=== PATIENT | male | born 1980 | race Caucasian/White ===

== ENCOUNTER 2022-03-17 04:53 | Inpatient (IN) ==
[2022-03-17] MEDS ORDERED: RAPID SEQUENCE INDUCTION BAG ONE (04:56)
[2022-03-17] MEDS ORDERED: PROPOFOL IV EMULSION 10 MG/ML 100 ML VIAL IV ONE (05:01)
[2022-03-17] MEDS ORDERED: SODIUM CHLORIDE 0.9% 500 ML IV SCH (05:15)
--- NOTE | 2022-03-17 05:20 | Emergency Department Note ---
History of Present Illness General Chief complaint: Cardiac Arrest/CPR Time Seen by Provider: 03/17/22 05:04 History of Present Illness 41-year-old male presents via EMS reportedly was found hanging by the guards at the [facility]. Patient reportedly was found to have a shoelace tied around his neck and he was reportedly hanging from a bunk bed. Patient really did not have a pulse and CPR was started x2 minutes patient had return of spontaneous circulation and was reportedly breathing. EMS arrived and the patient had an OPA inserted and the patient had his breathing assisted by [id number]. Patient is unresponsive upon arrival does not provide any history. There is no further history available to me currently as to the patient's condition and the events that actually occurred Past Med/Surg History Social History Smoking Status: Unknown if ever smoked Feels Safe at Home: Yes Immunizations: Past medical and past surgical history is unobtainable due to patient's clinical condition, social history is unknown, however the patient is an inmate at the [facility] present Review of Systems Unobtainable due to reduced consciousness Physical Exam Vital Signs Vital Signs - 24 hr 03/17/22 05:02 03/17/22 05:07 03/17/22 05:13 Temperature Temperature Source Pulse Rate 82 Pulse Rate from SpO2 Sensor Respiratory Rate 18 Respiratory Effort / Characteristics Mechanically Ventilated Respiratory Depth Normal Blood Pressure 150/93 H Blood Pressure Mean 112 Pulse Oximetry 99 100 99 Oxygen Delivery Method Mechanical Vent Mechanical Vent Oxygen Flow Rate Fraction of Inspired Oxygen 80 80 SaO2/FiO2 Ratio 123 125 Sepsis Recent Fever Within 48 Hours No Sepsis New/Unexplained Change in Mental Status No Sepsis Action Taken by Nursing No Action Required Fraction of Inspired Oxygen - Titration Pulse Oximetry Post Tiitration 03/17/22 05:16 03/17/22 05:03 03/17/22 05:39 Temperature Temperature Source Pulse Rate 115 H Pulse Rate from SpO2 Sensor Respiratory Rate 24 Respiratory Effort / Characteristics Respiratory Depth Blood Pressure Blood Pressure Mean Pulse Oximetry 98 97 Oxygen Delivery Method Ambu-Bag Oxygen Flow Rate 15 Fraction of Inspired Oxygen 80 40 SaO2/FiO2 Ratio Sepsis Recent Fever Within 48 Hours Sepsis New/Unexplained Change in Mental Status Sepsis Action Taken by Nursing Fraction of Inspired Oxygen - Titration 80 Pulse Oximetry Post Tiitration 99 03/17/22 06:00 03/17/22 06:09 03/17/22 05:00 Temperature 36.1 C L Temperature Source Rectal Pulse Rate 118 H Pulse Rate from SpO2 Sensor 118 H Respiratory Rate 22 17 Respiratory Effort / Characteristics Respiratory Depth Blood Pressure 150/93 H Blood Pressure Mean 112 Pulse Oximetry 100 Oxygen Delivery Method Oxygen Flow Rate Fraction of Inspired Oxygen SaO2/FiO2 Ratio Sepsis Recent Fever Within 48 Hours Sepsis New/Unexplained Change in Mental Status Sepsis Action Taken by Nursing Fraction of Inspired Oxygen - Titration Pulse Oximetry Post Tiitration 03/17/22 05:06 03/17/22 05:12 03/17/22 05:38 Temperature Temperature Source Pulse Rate 93 H 105 H 92 H Pulse Rate from SpO2 Sensor 109 H 106 H 93 H Respiratory Rate 25 H 21 27 H Respiratory Effort / Characteristics Respiratory Depth Blood Pressure 148/89 H 136/88 145/99 H Blood Pressure Mean 108 104 114 Pulse Oximetry 99 99 100 Oxygen Delivery Method Oxygen Flow Rate Fraction of Inspired Oxygen SaO2/FiO2 Ratio Sepsis Recent Fever Within 48 Hours Sepsis New/Unexplained Change in Mental Status Sepsis Action Taken by Nursing Fraction of Inspired Oxygen - Titration Pulse Oximetry Post Tiitration 03/17/22 05:45 03/17/22 06:00 Temperature Temperature Source Pulse Rate 104 H 95 H Pulse Rate from SpO2 Sensor 99 H 94 H Respiratory Rate 22 25 H Respiratory Effort / Characteristics Respiratory Depth Blood Pressure 151/91 H 159/84 H Blood Pressure Mean 111 109 Pulse Oximetry 100 100 Oxygen Delivery Method Oxygen Flow Rate Fraction of Inspired Oxygen SaO2/FiO2 Ratio Sepsis Recent Fever Within 48 Hours Sepsis New/Unexplained Change in Mental Status Sepsis Action Taken by Nursing Fraction of Inspired Oxygen - Titration Pulse Oximetry Post Tiitration VITAL SIGNS - Vital signs and nursing notes were reviewed. GENERAL -responsive cerebrate posturing SKIN -abrasion anterior mid-neck HEAD - NC/AT. EYES -pupils are equal and reactive at 5 bilaterally EARS - No deformities of external structures noted on gross examination bilaterally. NOSE - Midline and without cyanosis. No epistaxis or purulent drainage noted. Septum midline without deviation or septal hematoma noted. MOUTH/OROPHARYNX -there is an OPA airway present patient is currently undergoing [id number] ventilation NECK -cervical collar is present upon arrival the patient has a large abrasion to the anterior neck the trachea is midline there is no significant crepitance in the anterior neck LUNGS - Chest wall symmetric without accessory muscle use, intercostals retractions, or central cyanosis. Normal vesicular breath sounds CTA B/L. No wheezes, rales, or rhonchi appreciated. CARDIAC -tachycardic with S1/S2. No murmur, rubs, or gallops appreciated. ABDOMEN - Abdominal contour soft without pulsations or visible masses. EXTREMITIES - No clubbing or peripheral cyanosis. NEUROLOGIC -patient is unresponsive, with decerebrate posturing upon arrival his GCS is 4 PSYCH -unresponsive, GCS of 4 Procedures Intubation Time out performed: Yes sedative: Etomidate Mg Given: 20 paralytic: Succinylcholine Mg Given: 120 Laryngoscope: other (glidescope) ET Tube Size: 7.5 ET Tube Uncuffed: Yes Tube Secured Depth (cm): 22 Tube Secured Location: teeth Tube Placement Confirmation: visualized tube passing through cords, equal breath sounds bilaterally, no breath sounds over epigastrium and confirmation by capnometry Patient Tolerated Procedure: well Intubation Complications: none Course Reevaluation(s) Reevaluation #1: Patient remains intubated, is on dipper Van IV, patient has a cervical collar in place. Vital signs are currently stable on repeat examination. Time: 05:54 Consultations Consultation #1: Had spoken with the nurse practitioner Hermelindo from the ICU at the time of this patient's arrival Consultation #2: Case was discussed with the [facility] hospitalist for admission to the ICU Time: 06:28 Administered Medications Propofol (Diprivan) 1,000 mg in 100 mls @ 9.6 mls/hr IV [id number]; Protocol Stop: 03/20/22 06:14 Last Admin: 03/17/22 06:16 Dose: 80 mcg/kg/min, 38.4 mls/hr Documented By: NAN Co-signed By: CHRISTOPHER Discontinued Medications Ioversol (Optiray 300 500ml) 100 ml IV ONCE ONE Stop: 03/17/22 05:35 Last Admin: 03/17/22 05:35 Dose: 94 ml Documented By: DIONTE Miscellaneous (Rapid Sequence Induction Bag) Confirm Administered Dose 1 each .Clifton GALDAMEZE .STK-MED ONE Stop: 03/17/22 04:57 Last Admin: 03/17/22 05:25 Dose: 1 each Documented By: HERBERT Propofol (Propofol Iv Emulsion 10 Mg/Ml 100 Ml Vial) Confirm Administered Dose 1,000 mg IV .STK-MED ONE Stop: 03/17/22 05:02 Last Admin: 03/17/22 06:18 Dose: Not Given Documented By: NAN Critical Care Time Critical Care Time: Yes Total Critical Care Time: 45 I have personally spent greater than 45 minutes of critical care time in the direct management of this patient. This includes bedside care, interpretation of diagnostic studies, and testing, discussion with consultants, patient, and family members, and other required patient management activities. These minutes are in excess of all separately billable procedures. Medical Decision Making Medical Records Attestation: I reviewed the patient's medical records. Laboratory Data Attestation: I reviewed the patient's lab results. Result diagrams: 03/17/22 05:03 03/17/22 05:03 Lab Results 03/17/22 03/17/22 03/17/22 Range/Units 05:03 05:03 05:03 WBC 16.73 H (4.8-10.8) K/ul RBC 5.28 (4.63-6.08) M/uL Hgb 15.2 (14.0-18.0) g/dl POC Hgb (14.0-18.0) g/dl Hct 46.0 (40.1-51.0) % POC Hct (42-52) % MCV 87.1 (80.0-100.0) fL MCH 28.8 (25.0-34.0) pg MCHC 33.0 (32.0-36.0) g/dL RDW Std Deviation 39.8 (36.4-46.3) fL RDW Coeff of Marry 12.5 (11.5-14.5) % Plt Count 413 H (130-400) K/uL MPV 9.0 L (9.4-12.4) fL Immature Gran % (Auto) 2.0 % Neut % (Auto) 69.4 % Lymph % (Auto) 21.3 % Rice % (Auto) 6.2 % Eos % (Auto) 0.7 % Baso % (Auto) 0.4 % Neut # (Auto) 11.59 H (1.4-6.5) K/uL Lymph # (Auto) 3.57 H (1.2-3.4) K/uL Rice # (Auto) 1.04 H (0.24-0.82) K/uL Eos # (Auto) 0.12 (0-0.50) K/uL Baso # (Auto) 0.07 (0-0.2) K/uL Immature Gran # (Auto) 0.34 H (0.00-0.02) K/uL PT (9.0-12.0) Seconds INR (0.9-1.1) POC pH (7.35-7.45) POC pCO2 (35-46) mmHg POC pO2 (80-95) mmHg POC HCO3 (19-24) ti/L POC Total CO2 (24-31) mmol/L POC Base Excess (-9-1.8) ti/L POC ABG O2 Sat (90-95) % POC Sodium (135-144) mmol/L Sodium 137 (136-145) mmol/L POC Potassium (3.3-5.0) mmol/L Potassium 4.3 (3.5-5.1) mmol/L Chloride 103 (98-107) mmol/L Carbon Dioxide 17 L (21-32) mmol/L Anion Gap 17 H (3-11) BUN 16 (6-23) mg/dl Creatinine 1.03 (0.6-1.4) mg/dl Est Cr Clr Drug Dosing 104.6 ml/min Est GFR ( Amer) 104.8 ml/min Est GFR (Non-Af Amer) 90.4 ml/min BUN/Creatinine Ratio 15.5 (10-20) Glucose 274 H (70-99(Fasting)) mg/dl Calcium 9.0 (8.5-10.1) mg/dl Total Bilirubin 1.8 H (0.2-1.0) mg/dl AST 50 H (13-39) U/L ALT 44 (7-52) U/L Alkaline Phosphatase 59 (34-104) U/L Troponin I High Sens 8.2 (0-20) pg/ml Total Protein 7.5 (6.0-8.3) gm/dl Albumin 4.6 (3.4-5.0) gm/dl Globulin 2.9 (2.5-4.0) gm/dl Albumin/Globulin Ratio 1.6 (0.9-2) Urine Color Urine Appearance (Clear) Urine pH (4.5-7.5) Ur Specific Gilbert (1.000-1.030) Urine Protein (Negative) Urine Glucose (UA) (Negative) Urine Ketones (Negative) Urine Blood (Negative) Urine Nitrite (Negative) Urine Bilirubin (Negative) Urine Urobilinogen (Negative) Ur Leukocyte Esterase (Negative) Urine WBC (Auto) (0-5) /hpf Urine RBC (Auto) (0-4) /hpf U Hyaline Cast (Auto) (0-5) /lpf U Epithel Cells (Auto) (0-5) /lpf Urine Bacteria (Auto) (Negative) Urine Opiates Screen (Neg) Ur Methadone, Qual (Neg) Urine Barbiturates (Neg) Ur Phencyclidine (PCP) (Neg) U Amphetamin/Meth Scrn (Neg) MDMA (Ecstasy) Screen (Neg) U Benzodiazepines Scrn (Neg) Ur Cocaine Metabolite (Neg) U Marijuana (THC) Screen (Neg) Ethyl Alcohol mg/dL < 10.0 (<10.0) mg/dl 03/17/22 03/17/22 03/17/22 Range/Units 05:32 05:50 05:50 WBC (4.8-10.8) K/ul RBC (4.63-6.08) M/uL Hgb (14.0-18.0) g/dl POC Hgb (14.0-18.0) g/dl Hct (40.1-51.0) % POC Hct (42-52) % MCV (80.0-100.0) fL MCH (25.0-34.0) pg MCHC (32.0-36.0) g/dL RDW Std Deviation (36.4-46.3) fL RDW Coeff of Marry (11.5-14.5) % Plt Count (130-400) K/uL MPV (9.4-12.4) fL Immature Gran % (Auto) % Neut % (Auto) % Lymph % (Auto) % Rice % (Auto) % Eos % (Auto) % Baso % (Auto) % Neut # (Auto) (1.4-6.5) K/uL Lymph # (Auto) (1.2-3.4) K/uL Rice # (Auto) (0.24-0.82) K/uL Eos # (Auto) (0-0.50) K/uL Baso # (Auto) (0-0.2) K/uL Immature Gran # (Auto) (0.00-0.02) K/uL PT 12.5 H (9.0-12.0) Seconds INR 1.2 H (0.9-1.1) POC pH (7.35-7.45) POC pCO2 (35-46) mmHg POC pO2 (80-95) mmHg POC HCO3 (19-24) ti/L POC Total CO2 (24-31) mmol/L POC Base Excess (-9-1.8) ti/L POC ABG O2 Sat (90-95) % POC Sodium (135-144) mmol/L Sodium (136-145) mmol/L POC Potassium (3.3-5.0) mmol/L Potassium (3.5-5.1) mmol/L Chloride (98-107) mmol/L Carbon Dioxide (21-32) mmol/L Anion Gap (3-11) BUN (6-23) mg/dl Creatinine (0.6-1.4) mg/dl Est Cr Clr Drug Dosing ml/min Est GFR ( Amer) ml/min Est GFR (Non-Af Amer) ml/min BUN/Creatinine Ratio (10-20) Glucose (70-99(Fasting)) mg/dl Calcium (8.5-10.1) mg/dl Total Bilirubin (0.2-1.0) mg/dl AST (13-39) U/L ALT (7-52) U/L Alkaline Phosphatase (34-104) U/L Troponin I High Sens (0-20) pg/ml Total Protein (6.0-8.3) gm/dl Albumin (3.4-5.0) gm/dl Globulin (2.5-4.0) gm/dl Albumin/Globulin Ratio (0.9-2) Urine Color Yellow Urine Appearance Clear (Clear) Urine pH 5.0 (4.5-7.5) Ur Specific Gilbert 1.025 (1.000-1.030) Urine Protein 2+ H (Negative) Urine Glucose (UA) 3+ H (Negative) Urine Ketones 1+ H (Negative) Urine Blood Trace H (Negative) Urine Nitrite Negative (Negative) Urine Bilirubin Negative (Negative) Urine Urobilinogen Negative (Negative) Ur Leukocyte Esterase Negative (Negative) Urine WBC (Auto) 1-5 (0-5) /hpf Urine RBC (Auto) 0-4 (0-4) /hpf U Hyaline Cast (Auto) 1-5 (0-5) /lpf U Epithel Cells (Auto) 10-20 H (0-5) /lpf Urine Bacteria (Auto) Negative (Negative) Urine Opiates Screen Neg (Neg) Ur Methadone, Qual Neg (Neg) Urine Barbiturates Neg (Neg) Ur Phencyclidine (PCP) Neg (Neg) U Amphetamin/Meth Scrn Neg (Neg) MDMA (Ecstasy) Screen Neg (Neg) U Benzodiazepines Scrn Neg (Neg) Ur Cocaine Metabolite Neg (Neg) U Marijuana (THC) Screen Neg (Neg) Ethyl Alcohol mg/dL (<10.0) mg/dl 03/17/22 Range/Units 05:54 WBC (4.8-10.8) K/ul RBC (4.63-6.08) M/uL Hgb (14.0-18.0) g/dl POC Hgb 14.6 (14.0-18.0) g/dl Hct (40.1-51.0) % POC Hct 43 (42-52) % MCV (80.0-100.0) fL MCH (25.0-34.0) pg MCHC (32.0-36.0) g/dL RDW Std Deviation (36.4-46.3) fL RDW Coeff of Marry (11.5-14.5) % Plt Count (130-400) K/uL MPV (9.4-12.4) fL Immature Gran % (Auto) % Neut % (Auto) % Lymph % (Auto) % Rice % (Auto) % Eos % (Auto) % Baso % (Auto) % Neut # (Auto) (1.4-6.5) K/uL Lymph # (Auto) (1.2-3.4) K/uL Rice # (Auto) (0.24-0.82) K/uL Eos # (Auto) (0-0.50) K/uL Baso # (Auto) (0-0.2) K/uL Immature Gran # (Auto) (0.00-0.02) K/uL PT (9.0-12.0) Seconds INR (0.9-1.1) POC pH 7.24 L (7.35-7.45) POC pCO2 56 H (35-46) mmHg POC pO2 156 H (80-95) mmHg POC HCO3 24 (19-24) ti/L POC Total CO2 25 (24-31) mmol/L POC Base Excess -4.0 (-9-1.8) ti/L POC ABG O2 Sat 99.0 H (90-95) % POC Sodium 136 (135-144) mmol/L Sodium (136-145) mmol/L POC Potassium 3.6 (3.3-5.0) mmol/L Potassium (3.5-5.1) mmol/L Chloride (98-107) mmol/L Carbon Dioxide (21-32) mmol/L Anion Gap (3-11) BUN (6-23) mg/dl Creatinine (0.6-1.4) mg/dl Est Cr Clr Drug Dosing ml/min Est GFR ( Amer) ml/min Est GFR (Non-Af Amer) ml/min BUN/Creatinine Ratio (10-20) Glucose (70-99(Fasting)) mg/dl Calcium (8.5-10.1) mg/dl Total Bilirubin (0.2-1.0) mg/dl AST (13-39) U/L ALT (7-52) U/L Alkaline Phosphatase (34-104) U/L Troponin I High Sens (0-20) pg/ml Total Protein (6.0-8.3) gm/dl Albumin (3.4-5.0) gm/dl Globulin (2.5-4.0) gm/dl Albumin/Globulin Ratio (0.9-2) Urine Color Urine Appearance (Clear) Urine pH (4.5-7.5) Ur Specific Gilbert (1.000-1.030) Urine Protein (Negative) Urine Glucose (UA) (Negative) Urine Ketones (Negative) Urine Blood (Negative) Urine Nitrite (Negative) Urine Bilirubin (Negative) Urine Urobilinogen (Negative) Ur Leukocyte Esterase (Negative) Urine WBC (Auto) (0-5) /hpf Urine RBC (Auto) (0-4) /hpf U Hyaline Cast (Auto) (0-5) /lpf U Epithel Cells (Auto) (0-5) /lpf Urine Bacteria (Auto) (Negative) Urine Opiates Screen (Neg) Ur Methadone, Qual (Neg) Urine Barbiturates (Neg) Ur Phencyclidine (PCP) (Neg) U Amphetamin/Meth Scrn (Neg) MDMA (Ecstasy) Screen (Neg) U Benzodiazepines Scrn (Neg) Ur Cocaine Metabolite (Neg) U Marijuana (THC) Screen (Neg) Ethyl Alcohol mg/dL (<10.0) mg/dl Imaging Data Attestation: I personally reviewed and interpreted this imaging study as follows: My Impression: Chest x-ray interpreted by me normal mediastinum no obvious pneumothorax the endotracheal tube is at the level of the clavicles no obvious infiltrate Radiologist's Impression: * CT HEAD: No evidence of acute intracranial pathology. No comparisons. Radiologist: Mary Jane Shipman MD Study ready at 05:45 and initial results transmitted at 05:545:55 AM10 days leftPatient: PAMELA GRAYSON (Male) : 82 Status: ER Date: 03/17/22 05:38 Room #: History: FOUND BYGUARDS WITH SHOELACE AROUND NECK, ATTEMPTED HANGING Slices: 950 Priors: Tech: Yung Escobar @ [phone] Exams: CT C SPINE Contrast: Accession Numbers: [id number] Referring Physician: VONNIE GALINDO PreliminaryFingustavosOnshen See Final Report For Complete Findings CT C SPINE : No evidence of acute cervical spine pathology. Endotracheal tube in place. Right thyroid nodule. Subcutaneous edema in the anterior neck. No comparisons. Radiologist: Mary Jane Shipman MD Study ready at 05:45 and initial results transmitted at 05:575:58 AM10 days left * Patient: PAMELA GRAYSON (Male) : 82 Status: ER Date: 03/17/22 05:44 Room #: History: FOUND BYGUARDS WITH SHOELACE AROUND NECK, ATTEMPTED HANGING, CPR STARTED AT [place] Slices: [phone] Priors: Tech: Yung Escobar @ [phone] Exams: CT ABDOMEN & PELVIS With Contrast Contrast: IV Amt: 94 ML OPTIRAY 300 Accession Numbers: [id number] Referring Physician: VONNIE GALINDO PreliminaryFindingsOnshen See Final Report For Complete Findings CT ABDOMEN & PELVIS With Contrast: Tinyconsolidations in the lung bases. Findings concerning for colitis of the ascending, transverse and descending colon, which maybe infectious or inflammatoryetiologies. Hepatic steatosis. Status post cholecystectomythe common bile duct is normal. No evidence of pancreatitis. No evidence of hydronephrosis or urinarycalculi. No evidence of appendicitis. No evidence of free air or free fluid. There is a remote fracture deformityof the T12 vertebral body. No comparisons. Radiologist: Mary Jane Shipman MD Study ready at 05:48 and initial results transmitted at 06:066:06 AM10 days left ECG Data Attestation: I personally reviewed and interpreted this ECG as follows: Additional Comments: EKG - Interpreted by me normal sinus rhythm rate of 94 normal intervals normal a xis no obvious ST segment elevation or depression MDM Narrative Medical decision making differential diagnosis includes asphyxiation, intracranial hemorrhage, subarachnoid hemorrhage, subdural hemorrhage, cervical spine fracture, tracheal fracture, status postcardiac arrest, traumatic cardiac arrest. Plan is to check labs CTs Impression & Plan Asphyxiation due to hanging, Cardiac arrest, Acute respiratory failure Discharge Plan Visit Data Chief Complaint: Cardiac Arrest/CPR ED Provider: Mamadou Molina Discharge Problem: Asphyxiation due to hanging, Cardiac arrest, Acute respiratory failure Condition: Critical Forms Stand Alone Forms: My [facility] Referrals Referrals: PCP,NO [Physician] -
[2022-03-17] MEDS ORDERED: OPTIRAY 300 500mL IV ONE (05:34)
[2022-03-17 05:52] LABS: Basophils # (auto) 0.07 K/uL (0-0.2); Basophils % (auto) 0.4 %; Eosinophils # (auto) 0.12 K/uL (0-0.50); Eosinophils % (auto) 0.7 %; Hemoglobin 15.2 g/dl (14.0-18.0); Immature Granulocytes # (auto) 0.34 K/uL (0.00-0.02); Lymphocytes # (auto) 3.57 K/uL (1.2-3.4); Lymphocytes % (auto) 21.3 %; Mean Corpuscular Hemoglobin 28.8 pg (25.0-34.0); Mean Corpuscular Volume 87.1 fL (80.0-100.0); Monocytes # (auto) 1.04 K/uL (0.24-0.82); Monocytes % (auto) 6.2 %; Neutrophils # (auto) 11.59 K/uL (1.4-6.5); Neutrophils % (auto) 69.4 %; Platelet Count 413 K/uL (130-400); RDW Coefficient of Variation 12.5 % (11.5-14.5); RDW Standard Deviation 39.8 fL (36.4-46.3); Red Blood Count 5.28 M/uL (4.63-6.08); White Blood Count 16.73 K/ul (4.8-10.8)
[2022-03-17 06:00] LABS: INR 1.2 (0.9-1.1); Prothrombin Time 12.5 Seconds (9.0-12.0)
[2022-03-17 06:00] LABS: Albumin Globulin Ratio 1.6 (0.9-2); Albumin Level 4.6 gm/dl (3.4-5.0); BUN Creatinine Ratio 15.5 (10-20); Bilirubin,Total 1.8 mg/dl (0.2-1.0); Creatinine Clr Calc Pharmacy 104.6 ml/min; Est GFR (African American) 104.8 ml/min; Est GFR (Non-African American) 90.4 ml/min; Globulin 2.9 gm/dl (2.5-4.0); Potassium 4.3 mmol/L (3.5-5.1); Total Protein 7.5 gm/dl (6.0-8.3)
[2022-03-17 06:03] LABS: Troponin I High Sensitivity 8.2 pg/ml (0-20)
[2022-03-17 06:05] LABS: Appearance Urine Clear (Clear); Bacteria Urine Automated Negative (Negative); Bilirubin Urine Negative (Negative); Blood Urine Trace (Negative); Color Urine Yellow; Glucose Urine UA 3+ (Negative); Ketones Urine 1+ (Negative); Leukocyte Esterase Urine Negative (Negative); Nitrite Urine Negative (Negative); Protein Urine 2+ (Negative); RBC Urine Automated 0-4 /hpf (0-4); Specific Gravity Urine 1.025 (1.000-1.030); Urobilinogen Urine Negative (Negative)
[2022-03-17 06:09] LABS: iSTAT Arterial Blood Gas HCO3 24 meg/L (19-24); iSTAT Arterial Blood Gas pCO2 56 mmHg (35-46); iSTAT Arterial Blood Gas pH 7.24 (7.35-7.45); iSTAT Arterial Blood Gas pO2 156 mmHg (80-95); iSTAT Carbon Dioxide 25 mmol/L (24-31); iSTAT Hematocrit 43 % (42-52); iSTAT Hemoglobin 14.6 g/dl (14.0-18.0); iSTAT Potassium 3.6 mmol/L (3.3-5.0); iSTAT Sodium 136 mmol/L (135-144)
[2022-03-17] MEDS ORDERED: STAT IV Infusion **Titration per Protocol STA ×3 (06:09→07:42)
[2022-03-17] MEDS: propofoL 1,000 MG/100 ML VIAL IV SCH ×6 (06:16→23:06)
[2022-03-17 06:24] LABS: Amphetamines+Metham, Urine Neg (Neg); Barbiturates, Urine Neg (Neg); Benzodiazepine, Urine Neg (Neg); Cocaine, Urine Neg (Neg); MDMA (Ecstacy), Urine Neg (Neg); Methadone, Urine Neg (Neg); Opiate, Urine Neg (Neg); Phencyclidine, Urine Neg (Neg)
--- NOTE | 2022-03-17 06:29 | History & Physical Report ---
Date of Service March 17, 2022 Assessment & Plan (1) Cardiac arrest: Plan: Cardiac arrest/suicide attempt/asphyxiation due to hanging/acute respiratory failure- The patient will be admitted to the ICU for serial cardiac enzymes, serial EKG's, cardiac rhythm monitoring and a 2-D echocardiogram with Dopplers. Ventilator management per ICU staff Repeat ABG at 8 AM Serial CBC with differential, chemistry profile, magnesium, PT/PTT/INR/ABG DuoNebs every 4 hours as needed (2) Suicide attempt by hanging: (3) Acute respiratory failure: (4) Asphyxiation due to hanging: (5) Colitis: Plan: Question possible ischemic gut due to attempted hanging Zosyn 4.5 g IV every 8 hours follow clinical exam (6) Hyperglycemia: Plan: Placed on Accu-Cheks for hyperglycemic ICU protocol History of Present Illness Chief Complaint: The patient is brought to the emergency department as a prehospital cardiac arrest after being found hanging by guards at [facility], with a shoelace tied around his neck and reportedly was hanging from a bunk bed. Primary Care Provider: [facility] The patient is a 41-year-old male resident at [facility], brought to the emergency department as an out of hospital cardiac arrest, after having been found with a shoelace tied around his neck and hanging from a bunk bed. He reportedly did not initially have a pulse, and CPR was started x2 minutes, with return of spontaneous circulation and spontaneous breathing. Upon arrival to the facility, EMS inserted an OPA, and patient had breathing assisted by [id number]. Patient was on his response upon arrival to the emergency department, patient is presently intubated and on propofol infusion. Emergency room work-up included the following: CT head without contrast negative. CT cervical spine without contrast negative. Chest x-ray with no acute findings, with the ET tube in position. CT scan abdomen pelvis suggestive of colitis in the ascending, transverse and descending colon. Significant abnormal laboratories: WBC 16.73, platelets 413, INR 1.2, bicarb 17, glucose 274, total bili 1.8, AST 50. ABG with pH 7.24, PCO2 56, PO2 156, O2 sat 99% Urine drug screen negative COVID-19 testing negative Past Med/Surg History Social History Smoking Status: Unknown if ever smoked Feels Safe at Home: Yes Review of Systems Review of Systems: Unresponsive Physical Exam Physical Exam: The patient is unresponsive and on ventilator, muscle spasms noted HEENT--PERRL, EOMI, mucous membranes and oropharynx minimally bloodied and dry Neck--supple. No JVD. No bruits. Thyroid normal, Heart--normal S1 and S2. No murmurs, rubs or gallops. Lungs--clear bilaterally on ventilator. Abdomen--normal bowel sounds and soft. Nondistended Extremities--no cyanosis or clubbing. No edema. There are good distal pulses b/l. Dermatologic--normal skin turgor, normal color, Neurologic--limited exam due to medications administered for sedation and paralysis Rheumatologic--as above Psychiatric--unresponsive, intubated Results & Data Results & Data ([facility]) Vital Signs (Past 12 Hours) Vital Signs Temp Pulse Resp BP Pulse Ox O2 Del Method O2 Flow Rate 03/17/22 06:00 95 H 25 H 159/84 H 100 03/17/22 05:45 104 H 22 151/91 H 100 03/17/22 05:38 92 H 27 H 145/99 H 100 03/17/22 05:12 105 H 21 136/88 99 03/17/22 05:06 93 H 25 H 148/89 H 99 03/17/22 05:00 118 H 17 150/93 H 100 03/17/22 06:09 36.1 C L 03/17/22 06:00 22 03/17/22 05:39 03/17/22 05:03 115 H 24 97 03/17/22 05:16 98 Ambu-Bag 15 03/17/22 05:13 99 03/17/22 05:07 100 Mechanical Vent 03/17/22 05:02 82 18 150/93 H 99 Mechanical Vent FiO2 03/17/22 06:00 03/17/22 05:45 03/17/22 05:38 03/17/22 05:12 03/17/22 05:06 03/17/22 05:00 03/17/22 06:09 03/17/22 06:00 03/17/22 05:39 40 03/17/22 05:03 80 03/17/22 05:16 03/17/22 05:13 03/17/22 05:07 80 03/17/22 05:02 80 Laboratory Results Laboratory Results WBC 16.73 K/ul (4.8-10.8) H 03/17/22 05:03 RBC 5.28 M/uL (4.63-6.08) 03/17/22 05:03 Hgb 15.2 g/dl (14.0-18.0) 03/17/22 05:03 POC Hgb 14.6 g/dl (14.0-18.0) 03/17/22 05:54 Hct 46.0 % (40.1-51.0) 03/17/22 05:03 POC Hct 43 % (42-52) 03/17/22 05:54 MCV 87.1 fL (80.0-100.0) 03/17/22 05:03 MCH 28.8 pg (25.0-34.0) 03/17/22 05:03 MCHC 33.0 g/dL (32.0-36.0) 03/17/22 05:03 RDW Std Deviation 39.8 fL (36.4-46.3) 03/17/22 05:03 RDW Coeff of Marry 12.5 % (11.5-14.5) 03/17/22 05:03 Plt Count 413 K/uL (130-400) H 03/17/22 05:03 MPV 9.0 fL (9.4-12.4) L 03/17/22 05:03 Immature Gran % (Auto) 2.0 % 03/17/22 05:03 Neut % (Auto) 69.4 % 03/17/22 05:03 Lymph % (Auto) 21.3 % 03/17/22 05:03 Blair % (Auto) 6.2 % 03/17/22 05:03 Eos % (Auto) 0.7 % 03/17/22 05:03 Baso % (Auto) 0.4 % 03/17/22 05:03 Neut # (Auto) 11.59 K/uL (1.4-6.5) H 03/17/22 05:03 Lymph # (Auto) 3.57 K/uL (1.2-3.4) H 03/17/22 05:03 Blair # (Auto) 1.04 K/uL (0.24-0.82) H 03/17/22 05:03 Eos # (Auto) 0.12 K/uL (0-0.50) 03/17/22 05:03 Baso # (Auto) 0.07 K/uL (0-0.2) 03/17/22 05:03 Immature Gran # (Auto) 0.34 K/uL (0.00-0.02) H 03/17/22 05:03 PT 12.5 Seconds (9.0-12.0) H 03/17/22 05:32 INR 1.2 (0.9-1.1) H 03/17/22 05:32 POC pH 7.24 (7.35-7.45) L 03/17/22 05:54 POC pCO2 56 mmHg (35-46) H 03/17/22 05:54 POC pO2 156 mmHg (80-95) H 03/17/22 05:54 POC HCO3 24 ti/L (19-24) 03/17/22 05:54 POC Total CO2 25 mmol/L (24-31) 03/17/22 05:54 POC Base Excess -4.0 ti/L (-9-1.8) 03/17/22 05:54 POC ABG O2 Sat 99.0 % (90-95) H 03/17/22 05:54 POC Sodium 136 mmol/L (135-144) 03/17/22 05:54 Sodium 137 mmol/L (136-145) 03/17/22 05:03 POC Potassium 3.6 mmol/L (3.3-5.0) 03/17/22 05:54 Potassium 4.3 mmol/L (3.5-5.1) 03/17/22 05:03 Chloride 103 mmol/L (98-107) 03/17/22 05:03 Carbon Dioxide 17 mmol/L (21-32) L 03/17/22 05:03 Anion Gap 17 (3-11) H 03/17/22 05:03 BUN 16 mg/dl (6-23) 03/17/22 05:03 Creatinine 1.03 mg/dl (0.6-1.4) 03/17/22 05:03 Est Cr Clr Drug Dosing 104.6 ml/min 03/17/22 05:03 Est GFR ( Amer) 104.8 ml/min 03/17/22 05:03 Est GFR (Non-Af Amer) 90.4 ml/min 03/17/22 05:03 BUN/Creatinine Ratio 15.5 (10-20) 03/17/22 05:03 Glucose 274 mg/dl (70-99(Fasting)) H 03/17/22 05:03 Calcium 9.0 mg/dl (8.5-10.1) 03/17/22 05:03 Total Bilirubin 1.8 mg/dl (0.2-1.0) H 03/17/22 05:03 AST 50 U/L (13-39) H 03/17/22 05:03 ALT 44 U/L (7-52) 03/17/22 05:03 Alkaline Phosphatase 59 U/L (34-104) 03/17/22 05:03 Troponin I High Sens 8.2 pg/ml (0-20) 03/17/22 05:03 Total Protein 7.5 gm/dl (6.0-8.3) 03/17/22 05:03 Albumin 4.6 gm/dl (3.4-5.0) 03/17/22 05:03 Globulin 2.9 gm/dl (2.5-4.0) 03/17/22 05:03 Albumin/Globulin Ratio 1.6 (0.9-2) 03/17/22 05:03 Urine Color Yellow 03/17/22 05:50 Urine Appearance Clear (Clear) 03/17/22 05:50 Urine pH 5.0 (4.5-7.5) 03/17/22 05:50 Ur Specific Tichnor 1.025 (1.000-1.030) 03/17/22 05:50 Urine Protein 2+ (Negative) H 03/17/22 05:50 Urine Glucose (UA) 3+ (Negative) H 03/17/22 05:50 Urine Ketones 1+ (Negative) H 03/17/22 05:50 Urine Blood Trace (Negative) H 03/17/22 05:50 Urine Nitrite Negative (Negative) 03/17/22 05:50 Urine Bilirubin Negative (Negative) 03/17/22 05:50 Urine Urobilinogen Negative (Negative) 03/17/22 05:50 Ur Leukocyte Esterase Negative (Negative) 03/17/22 05:50 Urine WBC (Auto) 1-5 /hpf (0-5) 03/17/22 05:50 Urine RBC (Auto) 0-4 /hpf (0-4) 03/17/22 05:50 U Hyaline Cast (Auto) 1-5 /lpf (0-5) 03/17/22 05:50 U Epithel Cells (Auto) 10-20 /lpf (0-5) H 03/17/22 05:50 Urine Bacteria (Auto) Negative (Negative) 03/17/22 05:50 Urine Opiates Screen Neg (Neg) 03/17/22 05:50 Ur Methadone, Qual Neg (Neg) 03/17/22 05:50 Urine Barbiturates Neg (Neg) 03/17/22 05:50 Ur Phencyclidine (PCP) Neg (Neg) 03/17/22 05:50 U Amphetamin/Meth Scrn Neg (Neg) 03/17/22 05:50 MDMA (Ecstasy) Screen Neg (Neg) 03/17/22 05:50 U Benzodiazepines Scrn Neg (Neg) 03/17/22 05:50 Ur Cocaine Metabolite Neg (Neg) 03/17/22 05:50 U Marijuana (THC) Screen Neg (Neg) 03/17/22 05:50 Ethyl Alcohol mg/dL < 10.0 mg/dl (<10.0) 03/17/22 05:03 SARS-CoV-2, RNA, NAAT NEGATIVE (NEGATIVE) 03/17/22 06:13 Code Status & VTE Plan Code Status Full code VTE Prophylaxis Plan VTE Prophylaxis will be ordered: Yes Critical Care Time 40 minutes PG Care Time/CCT Total # of Minutes Spent Total Time Spent with Patient: Total time spent is greater than 50% in coordination of care (as documented) at patient's floor/unit and/or counseling patient: Coding Level of Care Code 38029 Initial Inpt Care Lvl 3 Diagnoses Cardiac arrest I46.9 Suicide attempt by hanging T71.162A Acute respiratory failure J96.00 Asphyxiation due to hanging T71.161A Colitis K52.9 Hyperglycemia R73.9 Time Spent (min) 40
[2022-03-17] MEDS ORDERED: PIPERACILLIN/TAZOBACTAM 4.5 GM in DEXTROSE 5% 100 ML IV SCH (06:30)
--- NOTE | 2022-03-17 06:49 | Billing Data ---
Date of Service March 17, 2022 Coding Level of Care Code Critical Care mins
[2022-03-17] MEDS ORDERED: MIDAZOLAM HCL 1 MG/ML 2ML VIAL ONE (06:50)
[2022-03-17] MEDS ORDERED: ALBUT/IPRATROP 3MG/0.5MG NEB 3 ML VIAL INH PRN (06:59)
[2022-03-17] MEDS ORDERED: ICU PROTOCOL FOR HYPERGLYCEMIA PRN ×2 (06:59→08:34)
[2022-03-17] MEDS ORDERED: MIDAZOLAM HCL 5 MG/ML 1 ML VIAL IV STA (07:05)
[2022-03-17] MEDS ORDERED: ROCURONIUM BROMIDE 10 MG/ML 5 ML VIAL IV ONE ×2 (07:13→16:11)
--- NOTE | 2022-03-17 07:15 | CT Scan Report ---
HEAD CT NONCONTRAST CT DOSE: HISTORY: Trauma TECHNIQUE: Multiaxial CT images of the head were performed without the use of intravenous contrast. A utomated exposure control was utilized for this study. A dose lowering technique was utilized adheri ng to the principles of ALARA. Comparison: None. Findings: The paranasal sinuses and mastoid air cells are clear. The calvarium and skull base are int act. The ventricles and sulci are within normal limits. There is no mass, hematoma, midline shift, or acute infarct. Impression: No acute intracranial abnormality. ACT 112: Negative or not required by law. Electronically signed by: Hugo Lake M.D. 03/17/2022 7:13 AM
[2022-03-17] MEDS ORDERED: ROCURONIUM BROMIDE 10 MG/ML 5 ML VIAL IV STA (07:18)
--- NOTE | 2022-03-17 07:22 | CT Scan Report ---
CT abd pelvis IV con only CLINICAL HISTORY: Trauma TECHNIQUE: Helical axial images of the abdomen and pelvis were obtained and displayed. Automated dose lowering techniques and/or adjustment according to patient size were utilized for this exam. This e xam was performed with intravenous contrast. CT DOSE: 2275.66 mGy.cm COMPARISON: None available at the time of this dictation. FINDINGS: Lower chest: Bibasilar atelectasis versus scarring is seen. Liver: Unremarkable. No focal lesions are seen. Gallbladder and biliary tree: Patient is status post cholecystectomy. No intra- or extrahepatic bilia ry ductal dilation. Pancreas: Unremarkable, no focal lesions. Spleen: Unremarkable. Adrenals: Unremarkable. Kidneys and ureters: Tiny hypodensities are seen which are too small to characterize. Bladder: Unremarkable. Reproductive organs: Prostatic calcifications are seen which may represent prior hemorrhage or granul omatous disease. Bowel: Unremarkable appearance of the bowel. The appendix is normal. Lymph nodes Retroperitoneal: Unremarkable. Pelvic: Unremarkable. Mesenteric: Unremarkable. Peritoneum: Normal. Vessels: Unremarkable. Abdominal wall: Unremarkable. Bones: There is a compression deformity of T12 which appears to be chronic. IMPRESSION: No acute abnormalities are seen. There is a T2 compression deformity which appears to be chronic, how ever correlation with point tenderness is recommended. ACT 112: Negative or not required by law. Electronically signed by: Garry Campos M.D. 03/17/2022 7:21 AM
[2022-03-17] MEDS ORDERED: Patient's ALLERGY Info needs ENTERED SCH (07:30)
[2022-03-17] MEDS ORDERED: busPIRone 15 MG TAB NG PRN (07:31)
[2022-03-17] MEDS ORDERED: ACETAMINOPHEN 650 MG SUPP PR PRN (07:31)
--- NOTE | 2022-03-17 07:38 | Procedure Note ---
Procedure Note Date of Service March 17, 2022 Note ARTERIAL LINE PROCEDURE NOTE: Procedure: Arterial Line Placement Attending: Dr. Jacky Sarmiento Provider: CHAPO Liriano Indication: Continuous hemodynamic monitoring during therapeutic hypothermia Anesthesia: [None Line placed emergently in unconscious patient following cardiac arrest with CPR and now undergoing therapeutic hypothermia for 24 hours protocol. A time-out was completed verifying correct patient, procedure, site, p ositioning, and implant(s) or special equipment if applicable. Allens test was performed to ensure adequate perfusion. Patients right wrist was prepped and draped in the usual sterile fashion. Ultrasound guidance was used to aid needle placement. A 20g Arrow arterial line was introduced into the radial artery. Catheter was threaded, and the needle was removed with appropriate blood return. Good waveform was observed. The patient tolerated the procedure well. Confirmation of placement with ultrasound. Blood Loss: Minimal Complications: None Procedural Ultrasound Guidance: Procedure Date: 03/17/2022 Indication: Arterial line insertion Attending: Dr. Jacky Samriento Provider: CHAPO Liriano Artery Identified: YES Line confirmed in Artery with ultrasound: Yes Complications: NONE Patient tolerated procedure: WELL Coding CPT Codes Tubes, Drains, and Vasc Access - Tubes, Drains, and Vasc Access: [id number] Place Catheter In Artery ([id number]) [facility] Procedure Codes (Charges) Tubes, Drains, and Vasc Access Procedure 1: Tubes, Drains, and Vasc Access: [id number] Place Catheter In Artery
--- NOTE | 2022-03-17 07:38 | CT Scan Report ---
CERVICAL SPINE CT CT DOSE: HISTORY: Attempted hanging. Trauma TECHNIQUE: Multiaxial CT images of the cervical spine were performed and reformatted in the sagittal and coronal plane without the use of contrast. A dose lowering technique was utilized adhering to e principles of ALARA. COMPARISON: None. FINDINGS: No fractures. No subluxation. Prevertebral soft tissues and the C1-C2 interval are intact. No pneumothorax. The endotracheal tube is partially visualized. A 5 mm right thyroid nodule. This eli s not meet CT criteria for follow-up. IMPRESSION: No fractures within the cervical spine. ACT 112: Negative or not required by law. Electronically signed by: Hugo Lake M.D. 03/17/2022 7:36 AM
--- NOTE | 2022-03-17 07:41 | Procedure Note ---
Procedure Note Date of Service March 17, 2022 Note FEMORAL CENTRAL LINE PROCEDURE NOTE: Procedure: Femoral Central Line Placement Attending: Dr. Jacky Sarmiento Provider: CHAPO Liriano Indication: Therapeutic hypothermia with intravenous cooling catheter Anesthesia: None Line placed emergently following cardiac arrest with unconscious patient and undergoing 24-hour therapeutic hypothermia protocol A time-out was completed verifying correct patient, procedure, site, positioning , and implants(s) or special equipment if applicable. Patients right groin was cleansed and draped in the typical sterile fashion using Chloraprep. The Femoral Vein and Femoral Artery were identified using ultrasound. The Femoral Vein was cannulated under direct ultrasound guidance using an introducer needle on a syringe. Good venous blood return was maintained prior to removal of syringe from introducer needle. Using Seldinger Technique, a guide wire was advanced through the introducer needle without resistance. The introducer needle was removed and ultrasound images were obtained of the guide wire within the Femoral Vein and saved to the patients medical record. A small incision was made in penetrating fashion at the guide wire insertion site utilizing an 11 blade scalpel. The dilator was advanced to the vessel without resistance. The dilator was exchanged for the cooling catheter which was advanced into the vessel without resistance. The guide wire was removed intact from the catheter without issue. Claves were placed on each catheter tip with confirmation of good blood flow from each lumen. Each port was easily flushed with sterile saline. The catheter was placed at the hub and sutured in place. BioPatch was applied to the catheter and a sterile Tegaderm dressing was applied over the catheter with careful attention to sterility. Patient tolerated procedure well. No immediate complications were met. Images obtained are saved for permanent record Procedural Ultrasound Guidance: Procedure Date: 03/17/2022 Indication: Central venous catheter insertion Attending: Dr. Jacky Sarmiento Provider: CHAPO Liriano Artery AND Vein visualized: Yes Compressible Vein: Yes Guidewire or Short Catheter seen in vein prior to dilation: Yes Line confirmed in Vein with ultrasound: Yes Images obtained are saved for permanent record. Coding CPT Codes Tubes, Drains, and Vasc Access - Tubes, Drains, and Vasc Access: [id number] Place catheter in vein superior or inferior vena cava ([id number]) Tubes, Drains, and Vasc Access - Tubes, Drains, and Vasc Access: [id number] Ultrasound Guidance For Vascular ([id number]) [facility] [place] Procedure Codes (Charges) Tubes, Drains, and Vasc Access Procedure 1: Tubes, Drains, and Vasc Access: [id number] Place catheter in vein superior or inferior vena cava Procedure 2: Tubes, Drains, and Vasc Access: [id number] Ultrasound Guidance For Vascular
--- NOTE | 2022-03-17 07:57 | Critical Care Consultation ---
Date of Consultation March 17, 2022 Assessment & Plan (1) Cardiac arrest: (2) Acute respiratory failure: (3) Colitis: (4) Asphyxiation due to hanging: (5) Suicide attempt by hanging: Plan ICU Assessment and Plan Reason Critically Ill: 41 yo M, prisoner at [facility], found unresponsive after hanging via shoelace and admitted to ICU s/p cardiac arrest Neuro CAM ICU: Sedated Sedation: Propofol 50 mcg/kg/min, Precedex 0.4 mcg/kg/hr, Versed 2 mg/hr Analgesia: None Head CT on admission clear Will need repeat CT/MRI at 24/36 hrs to assess for possible anoxic brain injury EEG ordered Cardiac - Cardiac arrest secondary to asphyxiation s/p ROSC -Hemodynamics improving- HR 90s-100s, BPs 140s-150s/80s-90s -Therapeutic hypothermia protocol initiated from admission, continue 24 hours- temperature goal 32 C -Troponin 8 to 24, likely demand ischemia -Tailor supportive care in wake of cardiac arrest- control hyperpyrexia, hyperglycemia, seizures, hypotension Respiratory - Acute respiratory failure secondary to cardiac arrest -CXR clear -TV 400, RR 22, PEEP 5, FiO2 40 -Repeat CXR in AM -Consider extubation readiness after 24 hours per therapeutic hypothermia protocol GI - -NPO while intubated, NSS 50 cc/hr -Pantoprazole IV -Discontinued famotidine RENAL/ELECTROLYTES - Hypophosphatemia -PO4 1.4 today Mg 1.7, K 3.6 -Goal Mg > 2, K > 4 ICU electrolyte repletion protocol Cr 1.03 - -Urinalysis does not suggest any infection -Thompson in place ENDO - -Unknown if pt has history of metabolic syndrome -BSG 274 on admission -ICU hyperglycemia protocol HEME - -Hgb 15.2, stable ID - -Zosyn started on admission due to concern for colitis -CTAP does not appear to display active colitis -WBC 16.7 to 17.2 today, afebrile and improving hemodynamic status -Discontinued Zosyn INTEGUMENTARY - None LINES/IV ACCESS - -PIV -Intubated -R radial A-line -Central line -Thompson -OG tube -C collar in place DVT PROPHYLAXIS - -Heparin 5000u BID Thank you for allowing us to be part of this patient's care. Please refer to Dr. Sarmiento's documentation for any further recommendations. Supervising Physician Co-Signing Physician Notes Patient seen and examined. EMR reviewed. Discussed with bedside critical care nurse and on multidisciplinary rounds. Discussed with critical care RAMIRO overnight as well as with family practice resident. Agree with assessment plan as noted. Patient admitted to the ICU intubated status post suicide attempt by asphyxiation/hanging. He is at severe risk for anoxic brain injury. Therapeutic hypothermia has been initiated although the patient's indications are soft as this was not a witnessed arrest, it was a PEA arrest, and mechanism of action was asphyxiation which may not have as favorable response to therapeutic hypothermia. As the protocol has already been initiated, will complete 24 hours. Will reassess neurological status when the patient is rewarmed. Again he is at risk for neurological injury. Await EEG to exclude nonconvulsive status epilepticus. If present, neurology consultation and antiepileptic medications will be initiated. Reviewed CT scan. No indication for colitis. Antibiotics will be discontinued. Will avoid fever, hypoxemia, hyperglycemia, hyponatremia, and hypotension to prevent exacerbation of underlying neurological injury. Patient's family has apparently been notified by the detention of his current status. The patient's overall prognosis is very guarded. We will see how he responds. A total of 65 minutes in critical care time was spent in evaluation management and stabilization of this patient. History of Present Illness Reason for Consultation: S/p cardiac arrest after asphyxiation Requesting Physician: Brandon Collins MD Attending Physician: eJt Loving History of Present Illness 41 yo M with unknown PMH, prisoner at [facility], presenting to ICU due to cardiac arrest from asphyxiation outside of hospital. At approximately 3:45 AM at [facility], staff found pt hanging from top bunk in his cell with shoelace tied around neck. Pt was unresponsive, pulseless and not breathing. After one round of CPR x2 mins, ROSC and spontaneous breathing was achieved. Brought to [facility] by EMS who inserted oropharyngeal airway and assisted breathing with bag valve mask. Pt still unresponsive in hospital evaluation. Pt transferred to ICU where he underwent arterial line and central line placement this AM Emergency room work-up included the following: CT head without contrast negative. CT cervical spine without contrast negative. Chest x-ray with no acute findings, ET tube in position. CTAP negative. Abnormal labs: WBC 16.73, platelets 413, INR 1.2, CO2 17, glucose 274, total bilirubin 1.8, AST 50. ABG with pH 7.24, PCO2 56, PO2 156, O2 sat 99% Urine drug screen negative COVID-19 testing negative Allergies Allergy/AdvReac Type Severity Reaction Status Date / Time No Known Allergies Allergy Verified 03/17/22 08:20 Patient History Social History Smoking Status: Unknown if ever smoked Feels Safe at Home: Yes Review of Systems Review of Systems: Unresponsive Physical Exam Physical Exam: GENERAL - Sedated, intubated, does not respond to commands SKIN - No rashes. HEAD - NC/AT. EYES - PERRL, anicteric sclerae. EARS - No deformities of external structures b/l NOSE - Midline. No epistaxis or purulent drainage. Septum midline without deviation. MOUTH/OROPHARYNX - No perioral cyanosis. Buccal mucosa pink and moist. ET in place NECK - no tracheal deviation LUNGS - intubated, ventilator settings RR 22, TV 450, PEEP 4, FiO2 40% CARDIAC - Tachycardic, regular, normal S1/S2. No murmurs appreciated ABDOMEN - Soft, nondistended EXTREMITIES - No clubbing or peripheral cyanosis. No peripheral edema present. Distal pulses of LE intact b/l NEUROLOGIC - Sedated, does respond to noxious stimuli, PSYCH - Sedated Results & Data Results & Data ([facility]) Vital Signs (Past 12 Hours) Vital Signs Temp Pulse Resp BP Pulse Ox O2 Del Method O2 Flow Rate 03/17/22 07:10 120 H 27 H 98 03/17/22 06:00 95 H 25 H 159/84 H 100 03/17/22 05:45 104 H 22 151/91 H 100 03/17/22 05:38 92 H 27 H 145/99 H 100 03/17/22 05:12 105 H 21 136/88 99 03/17/22 05:06 93 H 25 H 148/89 H 99 03/17/22 05:00 118 H 17 150/93 H 100 03/17/22 06:09 36.1 C L 03/17/22 06:00 22 03/17/22 05:39 03/17/22 05:03 115 H 24 97 03/17/22 05:16 98 Ambu-Bag 15 03/17/22 05:13 99 03/17/22 05:07 100 Mechanical Vent 03/17/22 05:02 82 18 150/93 H 99 Mechanical Vent FiO2 03/17/22 07:10 40 03/17/22 06:00 03/17/22 05:45 03/17/22 05:38 03/17/22 05:12 03/17/22 05:06 03/17/22 05:00 03/17/22 06:09 03/17/22 06:00 03/17/22 05:39 40 03/17/22 05:03 80 03/17/22 05:16 03/17/22 05:13 03/17/22 05:07 80 03/17/22 05:02 80
[2022-03-17] MEDS: MIDAZOLAM HCL 125 MG/250 ML BAG IV PRN (08:00)
[2022-03-17] MEDS: dexMEDEtomidine 200 MCG/50 ML BAG IV SCH ×3 (08:24→20:28)
[2022-03-17] MEDS ORDERED: PIPERACILLIN/TAZOBACTAM 4.5 GM in DEXTROSE 5% 100 ML IV ONE (08:45)
[2022-03-17 08:50] LABS: BUN Creatinine Ratio 18.5 (10-20); Calcium 9.1 mg/dl (8.5-10.1); Creatinine Clr Calc Pharmacy 133.1 ml/min; Est GFR (African American) 128.8 ml/min; Est GFR (Non-African American) 111.2 ml/min; Potassium 3.6 mmol/L (3.5-5.1)
[2022-03-17 08:55] LABS: Magnesium 1.8 mg/dl (1.7-2.4); Phosphorus 1.4 mg/dl (2.5-4.9)
[2022-03-17] MEDS ORDERED: SODIUM PHOSPHATE 3 MMOL/1 ML INFUSION IV STA (08:55)
[2022-03-17] MEDS ORDERED: FAMOTIDINE 20 MG in SYRINGE 3 ML IV SCH (09:00)
[2022-03-17] MEDS: MIDAZOLAM BOLUS FROM BAG IV PRN ×4 (09:05→12:05)
--- NOTE | 2022-03-17 09:06 | XRay Report ---
XR chest 1V portable HISTORY: Status post cardiac arrest. Attempted remaining. intubated COMPARISON: None. FINDINGS: Endotracheal tube terminates approximately 6.8 cm from the virgie. This could be advanced b y approximately 3 to 4 cm. No pneumothorax. No pleural effusions. The heart is normal in size. Cephal ization of the pulmonary vessels which may represent developing congestive change. No focal lung cons olidations. Old right clavicle and right upper rib fractures. IMPRESSION: 1. The endotracheal tube terminates 6.8 cm from the virgie. This could be advanced by approximately 3 to 4 cm. 2. Cephalization of the pulmonary vessels which may represent developing congestive change. ACT 112: Negative or not required by law. Electronically signed by: Hugo Lake M.D. 03/17/2022 9:05 AM
[2022-03-17] MEDS ORDERED: SODIUM PHOSPHATE 30 MMOL in SODIUM CHLORIDE 0.9% 500 ML IV STA (09:11)
[2022-03-17] MEDS: SODIUM CHLORIDE 0.9% 1000ML 1,000 ML IV SCH (09:12)
[2022-03-17 09:23] LABS: Basophils # (auto) 0.04 K/uL (0-0.2); Basophils % (auto) 0.2 %; Hematocrit (blood only) 43.5 % (40.1-51.0); Hemoglobin 15.1 g/dl (14.0-18.0); Immature Granulocytes # (auto) 0.11 K/uL (0.00-0.02); Immature Granulocytes % (auto) 0.6 %; Lymphocytes % (auto) 5.2 %; Mean Corpuscular Hemoglobin 28.9 pg (25.0-34.0); Mean Corpuscular Hgb Conc 34.7 g/dL (32.0-36.0); Mean Corpuscular Volume 83.3 fL (80.0-100.0); Mean Platelet Volume 8.5 fL (9.4-12.4); Monocytes # (auto) 0.99 K/uL (0.24-0.82); Monocytes % (auto) 5.8 %; Neutrophils # (auto) 15.16 K/uL (1.4-6.5); Neutrophils % (auto) 88.2 %; Platelet Count 329 K/uL (130-400); RDW Coefficient of Variation 12.6 % (11.5-14.5); Red Blood Count 5.22 M/uL (4.63-6.08)
[2022-03-17 09:35] LABS: INR 1.1 (0.9-1.1); Partial Thromboplastin Ratio 0.9; Partial Thromboplastin Time 23.7 Seconds (21.0-31.0); Prothrombin Time 11.6 Seconds (9.0-12.0)
[2022-03-17] MEDS: POTASSIUM CHLORIDE / WTR 20 MEQ/100 ML PLCT IV SCH ×2 (09:42→11:37)
[2022-03-17] MEDS: PANTOprazole 40 MG in SYRINGE 0 ML IV SCH (09:42)
--- NOTE | 2022-03-17 10:22 | Billing Data ---
Date of Service March 17, 2022 Coding Level of Care Code Critical Care mins
[2022-03-17 12:08] LABS: Basophils # (auto) 0.02 K/uL (0-0.2); Basophils % (auto) 0.1 %; Hemoglobin 14.5 g/dl (14.0-18.0); Immature Granulocytes # (auto) 0.07 K/uL (0.00-0.02); Immature Granulocytes % (auto) 0.4 %; Lymphocytes # (auto) 1.18 K/uL (1.2-3.4); Lymphocytes % (auto) 7.3 %; Mean Corpuscular Hemoglobin 29.1 pg (25.0-34.0); Mean Corpuscular Hgb Conc 35.4 g/dL (32.0-36.0); Mean Corpuscular Volume 82.3 fL (80.0-100.0); Mean Platelet Volume 8.6 fL (9.4-12.4); Monocytes # (auto) 1.57 K/uL (0.24-0.82); Monocytes % (auto) 9.7 %; Neutrophils # (auto) 13.29 K/uL (1.4-6.5); Neutrophils % (auto) 82.5 %; Platelet Count 332 K/uL (130-400); RDW Coefficient of Variation 12.7 % (11.5-14.5); RDW Standard Deviation 38.1 fL (36.4-46.3); Red Blood Count 4.98 M/uL (4.63-6.08); White Blood Count 16.13 K/ul (4.8-10.8)
[2022-03-17] MEDS ORDERED: busPIRone 15 MG TAB PO ONE (12:13)
--- NOTE | 2022-03-17 12:15 | XRay Report ---
KUB HISTORY: confirm NGT placement COMPARISON: Abdomen and pelvis CT 03/17/2022. FINDINGS: Nasogastric tube terminates in the proximal stomach. The fenestrated line is at the gastroe sophageal junction. Therefore, this should be advanced by approximately 5 cm. No dilated loops of bow el identified. Prior cholecystectomy. There is contrast within the bladder from the recent CT examina tion. No renal calculi. No ureteral calculi. No pneumoperitoneum or pneumatosis. IMPRESSION: Nasogastric tube terminates at the proximal stomach with the fenestrated line at the gastroesophageal junction. Therefore, this should be advanced by approximately 5 cm. ACT 112: Negative or not required by law. Electronically signed by: Hugo Lake M.D. 03/17/2022 12:14 PM
[2022-03-17] MEDS ORDERED: MEPERIDINE HCL 25 MG/ML CARP/VIAL IV STA (12:35)
[2022-03-17 12:39] LABS: Partial Thromboplastin Ratio 0.9
[2022-03-17 12:51] LABS: BUN Creatinine Ratio 19.4 (10-20); Calcium 8.9 mg/dl (8.5-10.1); Creatinine Clr Calc Pharmacy 149.7 ml/min; Est GFR (African American) 135.2 ml/min; Est GFR (Non-African American) 116.7 ml/min; Magnesium 1.7 mg/dl (1.7-2.4); Phosphorus 4.9 mg/dl (2.5-4.9); Potassium 4.5 mmol/L (3.5-5.1)
[2022-03-17] MEDS: MAGNESIUM SULFATE / D5W 1 GM/100 ML BAG IV SCH ×4 (13:30→21:08)
[2022-03-17 14:46] LABS: INR 1.1 (0.9-1.1); Prothrombin Time 11.9 Seconds (9.0-12.0)
[2022-03-17 15:51] LABS: Basophils # (auto) 0.02 K/uL (0-0.2); Basophils % (auto) 0.1 %; Eosinophils # (auto) 0.02 K/uL (0-0.50); Eosinophils % (auto) 0.1 %; Hematocrit (blood only) 42.6 % (40.1-51.0); Hemoglobin 14.8 g/dl (14.0-18.0); Immature Granulocytes % (auto) 0.6 %; Lymphocytes % (auto) 8.4 %; Mean Corpuscular Hemoglobin 29.1 pg (25.0-34.0); Mean Corpuscular Hgb Conc 34.7 g/dL (32.0-36.0); Mean Corpuscular Volume 83.7 fL (80.0-100.0); Mean Platelet Volume 8.5 fL (9.4-12.4); Monocytes # (auto) 1.76 K/uL (0.24-0.82); Monocytes % (auto) 11.4 %; Neutrophils # (auto) 12.22 K/uL (1.4-6.5); Neutrophils % (auto) 79.4 %; Platelet Count 294 K/uL (130-400); RDW Coefficient of Variation 12.3 % (11.5-14.5); RDW Standard Deviation 37.2 fL (36.4-46.3); Red Blood Count 5.09 M/uL (4.63-6.08); White Blood Count 15.42 K/ul (4.8-10.8)
[2022-03-17] MEDS ORDERED: SUCCINYLCHOLINE CHLORIDE 20 MG/ML 10 ML VIAL IV ONE (16:11)
[2022-03-17] MEDS ORDERED: ETOMIDATE 2 MG/ML 20 ML VIAL IV ONE (16:11)
[2022-03-17 16:18] LABS: BUN Creatinine Ratio 21.9 (10-20); Calcium 8.9 mg/dl (8.5-10.1); Creatinine Clr Calc Pharmacy 168.4 ml/min; Est GFR (African American) 141.9 ml/min; Est GFR (Non-African American) 122.5 ml/min; Magnesium 2.4 mg/dl (1.7-2.4); Phosphorus 5.4 mg/dl (2.5-4.9); Potassium 4.4 mmol/L (3.5-5.1)
--- NOTE | 2022-03-17 17:27 | XCELERA ---
[id number]
[2022-03-17] MEDS ORDERED: MEPERIDINE HCL 25 MG/ML CARP/VIAL IV ONE (18:03)
[2022-03-17] MEDS: ICU ELECTROLYTE REPLACEMENT PROTOCOL SCH (18:27)
[2022-03-17] MEDS ORDERED: traMADol HCL 50 MG TABLET NG PRN (19:51)
[2022-03-17 20:23] LABS: Basophils # (auto) 0.03 K/uL (0-0.2); Basophils % (auto) 0.1 %; Eosinophils # (auto) 0.01 K/uL (0-0.50); Hematocrit (blood only) 43.8 % (40.1-51.0); Hemoglobin 15.6 g/dl (14.0-18.0); Immature Granulocytes # (auto) 0.14 K/uL (0.00-0.02); Immature Granulocytes % (auto) 0.7 %; Lymphocytes # (auto) 0.81 K/uL (1.2-3.4); Mean Corpuscular Hemoglobin 29.3 pg (25.0-34.0); Mean Corpuscular Hgb Conc 35.6 g/dL (32.0-36.0); Mean Corpuscular Volume 82.2 fL (80.0-100.0); Mean Platelet Volume 8.7 fL (9.4-12.4); Monocytes # (auto) 1.66 K/uL (0.24-0.82); Monocytes % (auto) 8.3 %; Neutrophils # (auto) 17.46 K/uL (1.4-6.5); Neutrophils % (auto) 86.9 %; Platelet Count 311 K/uL (130-400); RDW Coefficient of Variation 12.4 % (11.5-14.5); RDW Standard Deviation 37.1 fL (36.4-46.3); Red Blood Count 5.33 M/uL (4.63-6.08); White Blood Count 20.11 K/ul (4.8-10.8)
[2022-03-17 20:44] LABS: INR 1.1 (0.9-1.1); Partial Thromboplastin Time 28.7 Seconds (21.0-31.0); Prothrombin Time 11.9 Seconds (9.0-12.0)
[2022-03-17 20:53] LABS: BUN Creatinine Ratio 26.8 (10-20); Calcium 8.6 mg/dl (8.5-10.1); Creatinine Clr Calc Pharmacy 192.5 ml/min; Est GFR (Non-African American) 129.4 ml/min; Magnesium 2.7 mg/dl (1.7-2.4); Phosphorus 3.8 mg/dl (2.5-4.9); Potassium 3.7 mmol/L (3.5-5.1)
[2022-03-17] MEDS: HEPARIN SOD 5,000 UNIT/0.5 ML VIAL SQ SCH (21:10)
--- NOTE | 2022-03-17 22:33 | Electrocardiogram Report ---
Test Reason : Blood Pressure : / mmHG Vent. Rate : 096 BPM Atrial Rate : 096 BPM P-R Int : 192 ms QRS Dur : 100 ms QT Int : 376 ms P-R-T Axes : 081 078 082 degrees QTc Int : 475 ms Normal sinus rhythm Normal ECG No previous ECGs available Confirmed by Pratik Howe ([id number]) on 03/17/2022 10:32:46 PM Referred By: [facility] Confirmed By:Pratik Howe
--- NOTE | 2022-03-17 22:42 | Electrocardiogram Report ---
Test Reason : Blood Pressure : / mmHG Vent. Rate : 111 BPM Atrial Rate : 111 BPM P-R Int : 146 ms QRS Dur : 090 ms QT Int : 344 ms P-R-T Axes : 084 081 072 degrees QTc Int : 467 ms Sinus tachycardia Otherwise normal ECG When compared with ECG of 17-MAR-2022 05:39, No significant change was found Confirmed by Pratik Howe ([id number]) on 03/17/2022 10:42:37 PM Referred By: [facility] Confirmed By:Pratik Howe
--- NOTE | 2022-03-17 23:31 | Electrocardiogram Report ---
Test Reason : Blood Pressure : / mmHG Vent. Rate : 073 BPM Atrial Rate : 073 BPM P-R Int : 146 ms QRS Dur : 084 ms QT Int : 428 ms P-R-T Axes : 101 072 061 degrees QTc Int : 472 ms Poor data quality, interpretation may be adversely affected Normal sinus rhythm Prolonged QT Abnormal ECG When compared with ECG of 17-MAR-2022 07:49, Vent. rate has decreased BY [address] elevation now present in Inferior leads ST elevation now present in Lateral leads Confirmed by Pratik Howe ([id number]) on 03/17/2022 11:30:53 PM Referred By: [facility] Confirmed By:Pratik Howe
[2022-03-18 00:23] LABS: Basophils # (auto) 0.02 K/uL (0-0.2); Basophils % (auto) 0.1 %; Hematocrit (blood only) 41.8 % (40.1-51.0); Hemoglobin 14.8 g/dl (14.0-18.0); Immature Granulocytes # (auto) 0.07 K/uL (0.00-0.02); Immature Granulocytes % (auto) 0.5 %; Lymphocytes % (auto) 5.9 %; Mean Corpuscular Hgb Conc 35.4 g/dL (32.0-36.0); Mean Corpuscular Volume 81.8 fL (80.0-100.0); Mean Platelet Volume 8.5 fL (9.4-12.4); Monocytes # (auto) 1.38 K/uL (0.24-0.82); Neutrophils # (auto) 12.96 K/uL (1.4-6.5); Neutrophils % (auto) 84.5 %; Platelet Count 268 K/uL (130-400); RDW Coefficient of Variation 12.2 % (11.5-14.5); RDW Standard Deviation 36.4 fL (36.4-46.3); Red Blood Count 5.11 M/uL (4.63-6.08); White Blood Count 15.33 K/ul (4.8-10.8)
[2022-03-18 00:34] LABS: Partial Thromboplastin Ratio 1.1
[2022-03-18 00:51] LABS: Anion Gap 12 (3-11); Blood Urea Nitrogen 16 mg/dl (6-23); Calcium 8.5 mg/dl (8.5-10.1); Carbon Dioxide 19 mmol/L (21-32); Chloride 104 mmol/L (98-107); Creatinine Clr Calc Pharmacy 200.6 ml/min; Est GFR (African American) > 150.0 ml/min; Est GFR (Non-African American) 135.6 ml/min; Glucose 82 mg/dl (70-99(Fasting)); Magnesium 2.3 mg/dl (1.7-2.4); Phosphorus 3.1 mg/dl (2.5-4.9); Potassium 3.3 mmol/L (3.5-5.1); Sodium 135 mmol/L (136-145)
[2022-03-18] MEDS: MIDAZOLAM HCL 125 MG/250 ML BAG IV PRN ×2 (01:04→15:37)
[2022-03-18] MEDS: POTASSIUM CHLORIDE / WTR 20 MEQ/100 ML PLCT IV SCH ×2 (02:24→04:00)
[2022-03-18] MEDS: dexMEDEtomidine 200 MCG/50 ML BAG IV SCH ×2 (02:25→08:29)
[2022-03-18 02:43] LABS: INR 1.1 (0.9-1.1); Prothrombin Time 11.9 Seconds (9.0-12.0)
[2022-03-18] MEDS: SODIUM CHLORIDE 0.9% 1000ML 1,000 ML IV SCH ×2 (04:01→22:49)
[2022-03-18] MEDS: propofoL 1,000 MG/100 ML VIAL IV SCH ×6 (04:50→22:49)
[2022-03-18 05:46] LABS: Basophils # (auto) 0.02 K/uL (0-0.2); Basophils % (auto) 0.2 %; Eosinophils # (auto) 0.01 K/uL (0-0.50); Eosinophils % (auto) 0.1 %; Hematocrit (blood only) 42.8 % (40.1-51.0); Hemoglobin 15.1 g/dl (14.0-18.0); Immature Granulocytes # (auto) 0.07 K/uL (0.00-0.02); Immature Granulocytes % (auto) 0.6 %; Lymphocytes % (auto) 7.1 %; Mean Corpuscular Hgb Conc 35.3 g/dL (32.0-36.0); Mean Corpuscular Volume 82.3 fL (80.0-100.0); Mean Platelet Volume 8.8 fL (9.4-12.4); Monocytes # (auto) 1.16 K/uL (0.24-0.82); Monocytes % (auto) 9.1 %; Neutrophils # (auto) 10.55 K/uL (1.4-6.5); Neutrophils % (auto) 82.9 %; Platelet Count 274 K/uL (130-400); RDW Coefficient of Variation 12.2 % (11.5-14.5); RDW Standard Deviation 36.7 fL (36.4-46.3); White Blood Count 12.71 K/ul (4.8-10.8)
[2022-03-18 06:08] LABS: Alanine Aminotransferase 44 U/L (7-52); Albumin Globulin Ratio 1.5 (0.9-2); Alkaline Phosphatase 66 U/L (34-104); Anion Gap 11 (3-11); Aspartate Aminotransferase 57 U/L (13-39); BUN Creatinine Ratio 30.4 (10-20); Bilirubin,Total 1.6 mg/dl (0.2-1.0); Blood Urea Nitrogen 14 mg/dl (6-23); Calcium 8.9 mg/dl (8.5-10.1); Carbon Dioxide 18 mmol/L (21-32); Chloride 107 mmol/L (98-107); Creatinine Clr Calc Pharmacy 223.4 ml/min; Est GFR (African American) > 150.0 ml/min; Est GFR (Non-African American) 140.3 ml/min; Globulin 2.7 gm/dl (2.5-4.0); Glucose 82 mg/dl (70-99(Fasting)); Magnesium 2.2 mg/dl (1.7-2.4); Phosphorus 2.6 mg/dl (2.5-4.9); Potassium 3.7 mmol/L (3.5-5.1); Sodium 136 mmol/L (136-145); Total Protein 6.7 gm/dl (6.0-8.3)
[2022-03-18 06:11] LABS: INR 1.1 (0.9-1.1); Partial Thromboplastin Ratio 1.1; Partial Thromboplastin Time 29.7 Seconds (21.0-31.0); Prothrombin Time 11.8 Seconds (9.0-12.0)
[2022-03-18] MEDS ORDERED: POTASSIUM CHLORIDE / WTR 20 MEQ/100 ML PLCT IV ONE (06:18)
[2022-03-18] MEDS: ICU ELECTROLYTE REPLACEMENT PROTOCOL SCH ×2 (06:18→18:11)
--- NOTE | 2022-03-18 07:31 | Critical Care Progress Note ---
Date of Service March 18, 2022 Assessment & Plan (1) Cardiac arrest: (2) Acute respiratory failure: (3) Colitis: (4) Asphyxiation due to hanging: (5) Suicide attempt by hanging: Plan ICU Assessment and Plan Reason Critically Ill: 41 yo M, prisoner at [facility], found unresponsive after hanging via shoelace and admitted to ICU s/p cardiac arrest Neuro [facility] ICU: Sedated Sedation: Propofol 50 mcg/kg/min, Versed 9 mg/hr Analgesia: None Concern for severe anoxic brain injury- family aware of poor prognosis, update given to [facility] EEG to be done today- may consult neurology pending results Cardiac - Cardiac arrest secondary to asphyxiation s/p ROSC -Hemodynamics- HR 50s, BP 80s-90s/50s-60s -Norepinephrine initiated today -Therapeutic hypothermia protocol initiated from admission- pt being warmed today at 1430 -Troponin peaked to 24 with further downtrend, likely demand ischemia- will stop trending -Tailor supportive care in wake of cardiac arrest- control hyperpyrexia, hyperglycemia, seizures, hypotension Respiratory - Acute respiratory failure secondary to cardiac arrest -CXR unremarkable today -TV 400, RR 22, PEEP 5, FiO2 21 -Consider extubation readiness after hypothermia protocol completed today GI - -NPO while intubated, NSS 50 cc/hr -Pantoprazole IV RENAL/ELECTROLYTES - Hypophosphatemia -PO4 3.0 today Mg 2.2, K 3.7 -Goal Mg > 2, K > 4 ICU electrolyte repletion protocol Cr 0.46 Discontinue q4h labs - -Urinalysis does not suggest any infection -Thompson in place ENDO - -Unknown if pt has history of metabolic syndrome -BSG 274 on admission, normal BSGs since -ICU hyperglycemia protocol HEME - -Hgb 15.1, stable ID - -Zosyn started on admission due to concern for colitis -CTAP does not appear to display active colitis -WBC 20.11 to 12.7 today, afebrile -Discontinued Zosyn 03/17 INTEGUMENTARY - None LINES/IV ACCESS - -PIV -Intubated -R radial A-line -Central line -Thompson -OG tube -C collar in place DVT PROPHYLAXIS - -Heparin 5000u BID Thank you for allowing us to be part of this patient's care. Please refer to Dr. Sarmiento's documentation for any further recommendations. Admission and Anticipated Discharge Date Admission Date: March 17, 2022 Supervising Physician Co-Signing Physician Notes Patient seen and examined. EMR reviewed. Discussed with critical care nurse at bedside as well as with family practice resident and on multidisciplinary rounds. Patient is currently undergoing therapeutic hypothermia. We have started a low- dose vasopressor due to hypotension likely perpetuated by sedative medications and hypothermia. EEG was reviewed at bedside this morning. Formal read is pending. No overt seizure activity was identified. Significant muscle artifact was present. No epileptiform discharges on my limited review. Will complete therapeutic hypothermia. Start warming the patient to 34 degrees and then at 2:00 will initiate rewarming process. Once patient is rewarmed, sedatives will be discontinued and we will repeat her neurological assessment. We will decide whether or not additional imaging or neurology consultation is required at that point time for potential anoxic brain injury. Of asked case management and pastoral care to assist in determining surrogate decision maker for this patient. Was informed by the ICU nurse that the wants to have nothing to do with him at this point time and has removed herself from any involvement in his care. Continue electrolyte replacement protocols. Follow for complications associated with potential diffuse anoxic brain injury. Total of 45 minutes in critical care time was spent in evaluation management of this patient. He remains critically ill with significant possibility of deterioration and/or . Subjective Pt did have some more shivering overnight, Versed increased to rate of 9. Pt has remained consistently in HR 50s, SBP/DBP 80s-90s/50s-60s while on sedation. No acute events overnight. Review of Systems Review of Systems: Unresponsive Physical Exam Physical Exam: GENERAL - Sedated, intubated, does not respond to commands SKIN - No rashes. HEAD - NC/AT. EYES - PERRL, anicteric sclerae. EARS - No deformities of external structures b/l NOSE - Midline. No epistaxis or purulent drainage. Septum midline without deviation. MOUTH/OROPHARYNX - No perioral cyanosis. Buccal mucosa pink and moist. ET in place NECK - no tracheal deviation LUNGS - intubated, ventilator settings RR 22, TV 450, PEEP 4, FiO2 21% CARDIAC - Bradycardic, regular, normal S1/S2. No murmurs appreciated ABDOMEN - Soft, nondistended EXTREMITIES - No clubbing or peripheral cyanosis. No peripheral edema present. Distal pulses of LE intact b/l NEUROLOGIC - Sedated, minimal response to noxious stimuli PSYCH - Sedated Results & Data Results & Data ([facility]) Vital Signs (Past 12 Hours) Vital Signs Temp Temp Pulse Resp BP BP Pulse Ox 03/18/22 06:00 32 C L 32 C L 60 22 96/71 L 84/57 L 100 03/18/22 04:00 03/18/22 00:00 03/18/22 05:00 32 C L 32 C L 61 22 104/70 80/52 L 100 03/17/22 20:00 03/18/22 03:05 57 L 22 99 03/18/22 04:00 32.1 C L 32.1 C L 61 22 130/71 94/62 L 100 03/18/22 03:00 32.1 C L 32.1 C L 63 22 109/77 95/62 L 100 03/18/22 02:00 32.1 C L 32.1 C L 59 L 23 113/78 97/54 L 100 03/18/22 01:00 32.1 C L 32.1 C L 57 L 22 109/82 89/56 L 100 03/18/22 00:00 32.1 C L 32.1 C L 54 L 22 108/74 90/54 L 100 03/17/22 23:00 32.1 C L 32.1 C L 55 L 25 H 104/65 88/50 L 100 03/17/22 23:20 56 L 24 99 03/17/22 22:00 32.1 C L 32.1 C L 60 26 H 109/65 101/65 99 03/17/22 20:00 03/17/22 21:00 36.6 C 36.5 C 65 29 H 123/75 118/64 100 03/17/22 20:00 32.8 C L 32.8 C L 68 31 H 142/74 H 120/60 100 03/17/22 20:00 68 32 H 99 O2 Del Method FiO2 03/18/22 06:00 Mechanical Vent 03/18/22 04:00 03/18/22 00:00 25 03/18/22 05:00 Mechanical Vent 25 03/17/22 20:00 25 03/18/22 03:05 03/18/22 04:00 Mechanical Vent 03/18/22 03:00 Mechanical Vent 25 03/18/22 02:00 Mechanical Vent 25 03/18/22 01:00 Mechanical Vent 25 03/18/22 00:00 Mechanical Vent 25 03/17/22 23:00 Mechanical Vent 25 03/17/22 23:20 25 03/17/22 22:00 Mechanical Vent 25 03/17/22 20:00 Mechanical Vent 25 03/17/22 21:00 Mechanical Vent 25 03/17/22 20:00 Mechanical Vent 25 03/17/22 20:00 25 Resident Activity Tracking Resident Involvement: Resident Care Provided Care Provided: Adult Hospital Medicine
[2022-03-18 08:19] LABS: Basophils # (auto) 0.03 K/uL (0-0.2); Basophils % (auto) 0.3 %; Eosinophils # (auto) 0.01 K/uL (0-0.50); Eosinophils % (auto) 0.1 %; Hematocrit (blood only) 43.2 % (40.1-51.0); Hemoglobin 15.1 g/dl (14.0-18.0); Immature Granulocytes # (auto) 0.06 K/uL (0.00-0.02); Immature Granulocytes % (auto) 0.5 %; Lymphocytes # (auto) 1.31 K/uL (1.2-3.4); Mean Corpuscular Hemoglobin 29.3 pg (25.0-34.0); Mean Corpuscular Volume 83.9 fL (80.0-100.0); Mean Platelet Volume 8.6 fL (9.4-12.4); Monocytes # (auto) 0.99 K/uL (0.24-0.82); Monocytes % (auto) 8.3 %; Neutrophils # (auto) 9.46 K/uL (1.4-6.5); Neutrophils % (auto) 79.8 %; Platelet Count 265 K/uL (130-400); RDW Coefficient of Variation 12.6 % (11.5-14.5); RDW Standard Deviation 38.1 fL (36.4-46.3); Red Blood Count 5.15 M/uL (4.63-6.08); White Blood Count 11.86 K/ul (4.8-10.8)
[2022-03-18] MEDS ORDERED: STAT IV Infusion **Titration per Protocol STA (08:24)
[2022-03-18 08:31] LABS: INR 1.1 (0.9-1.1); Partial Thromboplastin Ratio 1.1; Partial Thromboplastin Time 31.3 Seconds (21.0-31.0); Prothrombin Time 12.1 Seconds (9.0-12.0)
[2022-03-18] MEDS: HEPARIN SOD 5,000 UNIT/0.5 ML VIAL SQ SCH ×2 (08:36→21:06)
[2022-03-18] MEDS: PANTOprazole 40 MG in SYRINGE 0 ML IV SCH (08:36)
[2022-03-18] MEDS: NOREPINEPHRINE/D5W 4 MG/250 ML PLCT IV SCH (08:37)
[2022-03-18 08:44] LABS: BUN Creatinine Ratio 23.2 (10-20); Creatinine Clr Calc Pharmacy 183.5 ml/min; Est GFR (Non-African American) 129.4 ml/min; Magnesium 2.2 mg/dl (1.7-2.4); Potassium 3.7 mmol/L (3.5-5.1)
--- NOTE | 2022-03-18 10:21 | Billing Data ---
Date of Service March 18, 2022 Coding Level of Care Code Critical Care mins
--- NOTE | 2022-03-18 12:51 | XRay Report ---
XR chest 1V portable CLINICAL HISTORY: Resp failure TECHNIQUE: Single frontal radiograph of the chest was obtained. Comparison: Comparison is made to chest radiograph 03/17/2022 FINDINGS: Endotracheal tube tip is 6 cm from the virgie. Enteric tube is unchanged. The cardiomediastinal silho uette is normal. Reticular interstitial opacities are seen most prominent in the apices. No evidence of pleural effusion or pneumothorax. IMPRESSION: Biapical scarring without evidence of acute chest disease. Lines and tubes are stable. ACT 112: Negative or not required by law. Electronically signed by: Garry Campos M.D. 03/18/2022 12:49 PM
--- NOTE | 2022-03-18 14:02 | Communication Note ---
Date of Service: March 18, 2022 Received authorization from [place] to speak with the patient's father, Brandon ([phone]). He is the patient's surrogate proxy decision-maker along with his mother. Brandon was updated by phone on the patient's clinical condition and events leading to his hospitalization. He understands the gravity of the situation. He understands that his son is at risk for anoxic brain injury and is currently completing a therapeutic hypothermia protocol. He is sedated. Will reassess once he is rewarmed and sedation is off. Brandon clearly states that Uri's desire would never be to be maintained on support devices and he specifically states that Uri would never be acceptable of tracheostomy or PEG tube or placement in a nursing facility if he were to require assistance with activities of daily living. He valued his independence and would only find a acceptable quality of life if he were able to function independently. In light of Uri's previously expressed wishes which are confirmed with the patient's mother and father, will change his CODE STATUS to DO NOT RESUSCITATE as they state if he were to suffer an additional catastrophic event, he would not want additional resuscitation. Will complete rewarming process and take the patient off sedation to allow for better neurological assessment 48 hours out from his event. Patient's outcome could vary from anoxic injury to persistent vegetative state to potential brain . Additional testing and evaluation will be dictated based on his clinical condition when rewarmed. I will call and update them tomorrow when we have had an opportunity to reassess the patient off sedation and when he has been rewarmed. Questions were answered to the best my ability. He expressed understanding and is in agreement with the plan as outlined. An additional 45 minutes in critical care time was spent managing this critically ill patient. Coding Level of Care Code Critical Care [facility] 30 min
[2022-03-18 15:06] LABS: iSTAT Art Bld Gas pCO2 Correct 30 mmHg (35-46); iSTAT Art Bld Gas pH Corrected 7.411 (7.35-7.45); iSTAT Arterial Blood Gas HCO3 20 meg/L (19-24); iSTAT Arterial Blood Gas pCO2 37 mmHg (35-46); iSTAT Arterial Blood Gas pH 7.34 (7.35-7.45); iSTAT Arterial Blood Gas pO2 122 mmHg (80-95); iSTAT Arterial Blood Gas pO2 C 95; iSTAT Carbon Dioxide 21 mmol/L (24-31); iSTAT FiO2 25 %; iSTAT Hematocrit 43 % (42-52); iSTAT Hemoglobin 14.6 g/dl (14.0-18.0); iSTAT Potassium 3.6 mmol/L (3.3-5.0); iSTAT Site Art Line; iSTAT Sodium 138 mmol/L (135-144)
[2022-03-18 15:54] LABS: iSTAT Arterial Blood Gas pH 7.42 (7.35-7.45); iSTAT Hematocrit 44 % (42-52); iSTAT Potassium 3.5 mmol/L (3.3-5.0); iSTAT Sodium 139 mmol/L (135-144)
[2022-03-18 15:55] LABS: Patient Temperature 37.6; iSTAT Allen Test Acceptable; iSTAT Arterial Blood Gas HCO3 24 meg/L (19-24); iSTAT Arterial Blood Gas pCO2 36 mmHg (35-46); iSTAT Arterial Blood Gas pO2 186 mmHg (80-95); iSTAT Carbon Dioxide 25 mmol/L (24-31); iSTAT Sample Type Arterial
[2022-03-18 15:56] LABS: iSTAT FiO2 40 %
--- NOTE | 2022-03-18 16:40 | Electroencephalogram ---
EEG Procedure Note Date of Service March 18, 2022 Start / End Times Start Time: 9:22 am End Time: 9:42 am Referring Physician Hermelindo Kulkarni History Anoxic encephalopathy Inpatient Medication List Buspirone HCl (Buspirone 15 Mg Tab) 60 mg NG ONCE PRN PRN Reason: For Shivering x 1 dose Stop: 04/16/22 07:30 Last Admin: 03/17/22 08:51 Dose: 60 mg Documented By: TB Heparin Sodium (Porcine) (Heparin Sod 5,000 Unit/0.5 Ml Vial) 5,000 units SQ Q12 [facility] Stop: 04/16/22 20:59 Last Admin: 03/18/22 08:36 Dose: 5,000 units Documented By: Admin: 03/17/22 21:10 Dose: 5,000 units Documented By: KIERSTEN Propofol (Diprivan) 1,000 mg in 100 mls @ 24 mls/hr IV .Q4H10M [facility]; Protocol Stop: 03/20/22 06:14 Last Admin: 03/18/22 13:07 Dose: 50 mcg/kg/min, 24 mls/hr Documented By: TERA Co-signed By: ANNA Titration: 03/18/22 12:47 Dose: 50 mcg/kg/min, 24 mls/hr Documented By: TERA Co-signed By: ANNA Admin: 03/18/22 08:39 Dose: Not Given Documented By: Admin: 03/18/22 08:39 Dose: Not Given Documented By: Admin: 03/18/22 08:36 Dose: 50 mcg/kg/min, 24 mls/hr Documented By: TERA Co-signed By: JOLANTA Titration: 03/18/22 08:36 Dose: 40 mcg/kg/min, 19.2 mls/hr Documented By: TERA Co-signed By: JOLANTA Titration: 03/18/22 08:24 Dose: 40 mcg/kg/min, 19.2 mls/hr Documented By: Titration: 03/18/22 07:50 Dose: 30 mcg/kg/min, 14.4 mls/hr Documented By: Titration: 03/18/22 07:38 Dose: 40 mcg/kg/min, 19.2 mls/hr Documented By: Titration: 03/18/22 07:07 Dose: 50 mcg/kg/min, 24 mls/hr Documented By: TERA Co-signed By: CP Admin: 03/18/22 04:50 Dose: 50 mcg/kg/min, 24 mls/hr Documented By: CP Co-signed By: SG Titration: 03/18/22 03:17 Dose: 50 mcg/kg/min, 24 mls/hr Documented By: CP Co-signed By: SG Admin: 03/17/22 23:06 Dose: 50 mcg/kg/min, 24 mls/hr Documented By: CP Co-signed By: SG Titration: 03/17/22 23:06 Dose: 50 mcg/kg/min, 24 mls/hr Documented By: CP Co-signed By: SG Admin: 03/17/22 21:23 Dose: Not Given Documented By: Titration: 03/17/22 20:40 Dose: 50 mcg/kg/min, 24 mls/hr Documented By: Titration: 03/17/22 20:30 Dose: 45 mcg/kg/min, 21.6 mls/hr Documented By: Titration: 03/17/22 20:20 Dose: 40 mcg/kg/min, 19.2 mls/hr Documented By: Titration: 03/17/22 20:10 Dose: 35 mcg/kg/min, 16.8 mls/hr Documented By: Titration: 03/17/22 20:00 Dose: 30 mcg/kg/min, 14.4 mls/hr Documented By: Titration: 03/17/22 19:30 Dose: 25 mcg/kg/min, 12 mls/hr Documented By: Admin: 03/17/22 18:43 Dose: 20 mcg/kg/min, 9.6 mls/hr Documented By: TB Co-signed By: TMG Titration: 03/17/22 18:43 Dose: 20 mcg/kg/min, 9.6 mls/hr Documented By: TB Co-signed By: TMG Admin: 03/17/22 18:27 Dose: Not Given Documented By: Titration: 03/17/22 13:46 Dose: 20 mcg/kg/min, 9.6 mls/hr Documented By: Titration: 03/17/22 13:06 Dose: 25 mcg/kg/min, 12 mls/hr Documented By: Titration: 03/17/22 12:05 Dose: 30 mcg/kg/min, 14.4 mls/hr Documented By: Titration: 03/17/22 11:05 Dose: 35 mcg/kg/min, 16.8 mls/hr Documented By: Admin: 03/17/22 10:59 Dose: 40 mcg/kg/min, 19.2 mls/hr Documented By: TB Co-signed By: TMG Titration: 03/17/22 09:10 Dose: 50 mcg/kg/min, 24 mls/hr Documented By: TB Co-signed By: TMG Titration: 03/17/22 08:24 Dose: 50 mcg/kg/min, 24 mls/hr Documented By: Admin: 03/17/22 06:16 Dose: 80 mcg/kg/min, 38.4 mls/hr Documented By: NAN Co-signed By: CHRISTOPHER Pantoprazole Sodium 40 mg/ (Syringe) 10 mls @ 5 mls/min IV DAILY@1100 NAZ Stop: 04/16/22 10:59 Last Admin: 03/18/22 08:36 Dose: 5 mls/min Documented By: Admin: 03/17/22 09:42 Dose: 5 mls/min Documented By: MEMO Midazolam HCl (Versed) 125 mg in 250 mls @ 18 mls/hr IV .[id number] PRN; Protocol PRN Reason: Sedation Stop: 04/16/22 07:41 Last Admin: 03/18/22 15:37 Dose: 9 mg/hr, 18 mls/hr Documented By: TERA Co-signed By: SHELBY Titration: 03/18/22 14:58 Dose: 9 mg/hr, 18 mls/hr Documented By: TERA Co-signed By: SHELBY Titration: 03/18/22 07:07 Dose: 9 mg/hr, 18 mls/hr Documented By: TERA Co-signed By: KIERSTEN Admin: 03/18/22 01:04 Dose: 9 mg/hr, 18 mls/hr Documented By: KIERSTEN Co-signed By: SG Titration: 03/18/22 01:04 Dose: 9 mg/hr, 18 mls/hr Documented By: KIERSTEN Co-signed By: SG Titration: 03/17/22 23:30 Dose: 9 mg/hr, 18 mls/hr Documented By: CP Co-signed By: SG Titration: 03/17/22 22:30 Dose: 8.5 mg/hr, 17 mls/hr Documented By: CP Co-signed By: SG Titration: 03/17/22 21:30 Dose: 8 mg/hr, 16 mls/hr Documented By: CP Co-signed By: SG Titration: 03/17/22 20:30 Dose: 7.5 mg/hr, 15 mls/hr Documented By: CP Co-signed By: SG Titration: 03/17/22 19:30 Dose: 7 mg/hr, 14 mls/hr Documented By: CP Co-signed By: SG Titration: 03/17/22 16:11 Dose: 6 mg/hr, 12 mls/hr Documented By: TB Co-signed By: TMG Titration: 03/17/22 12:05 Dose: 5 mg/hr, 10 mls/hr Documented By: TB Co-signed By: TMG Titration: 03/17/22 11:05 Dose: 4 mg/hr, 8 mls/hr Documented By: TB Co-signed By: TMG Titration: 03/17/22 10:04 Dose: 3 mg/hr, 6 mls/hr Documented By: TB Co-signed By: TMG Titration: 03/17/22 09:01 Dose: 2 mg/hr, 4 mls/hr Documented By: TB Co-signed By: TMG Admin: 03/17/22 08:00 Dose: 1 mg/hr, 2 mls/hr Documented By: TB Co-signed By: TMG Sodium Chloride (Nss 1000ml) 1,000 mls @ 50 mls/hr IV .Q20H NAZ Stop: 04/16/22 08:44 Last Infusion: 03/18/22 07:07 Dose: 50 mls/hr Documented By: Admin: 03/18/22 04:01 Dose: 50 mls/hr Documented By: Infusion: 03/18/22 04:01 Dose: 50 mls/hr Documented By: Admin: 03/17/22 09:12 Dose: 50 mls/hr Documented By: TB Norepinephrine Bitartrate (Levophed/D5w) 4 mg in 250 mls @ 13.875 mls/hr IV .Q18H2M NAZ; Protocol Stop: 04/17/22 08:29 Last Titration: 03/18/22 14:06 Dose: 0 mcg/kg/min, 0 mls/hr Documented By: Admin: 03/18/22 08:37 Dose: 0.05 mcg/kg/min, 13.9 mls/hr Documented By: TERA Co-signed By: JOLANTA Midazolam HCl (Midazolam Bolus From Bag) 2 mg IV Q60M PRN PRN Reason: Sedation Stop: 04/16/22 07:41 Last Admin: 03/17/22 12:05 Dose: 2 mg Documented By: Admin: 03/17/22 11:05 Dose: 2 mg Documented By: Admin: 03/17/22 10:05 Dose: 2 mg Documented By: Admin: 03/17/22 09:05 Dose: 2 mg Documented By: MEMO Miscellaneous (Icu Electrolyte Replacement Protocol) 1 each N/A BID@06,18 NAZ; Protocol Stop: 03/24/22 17:59 Last Admin: 03/18/22 06:18 Dose: 1 each Documented By: Admin: 03/17/22 18:27 Dose: Not Given Documented By: MEMO Tramadol HCl (Tramadol Hcl 50 Mg Tablet) 50 mg NG Q6H PRN PRN Reason: Shivering Stop: 04/16/22 19:50 Last Admin: 03/17/22 20:10 Dose: 50 mg Documented By: KIERSTEN Discontinued Medications Sodium Chloride (Nss) 500 mls @ 999 mls/hr IV .Q31M NAZ Stop: 03/17/22 05:45 Last Admin: 03/17/22 09:54 Dose: Not Given Documented By: MEMO Dexmedetomidine/Sodium Chloride (Precedex) 200 mcg in 50 mls @ 8 mls/hr IV .Q6H15M NAZ; Protocol Stop: 03/21/22 06:29 Last Admin: 03/18/22 08:29 Dose: Not Given Documented By: Titration: 03/18/22 07:07 Dose: 0 mcg/kg/hr, 0 mls/hr Documented By: Admin: 03/18/22 02:25 Dose: Not Given Documented By: Admin: 03/17/22 20:28 Dose: Not Given Documented By: Titration: 03/17/22 14:27 Dose: 0 mcg/kg/hr, 0 mls/hr Documented By: Titration: 03/17/22 14:01 Dose: 0.2 mcg/kg/hr, 4 mls/hr Documented By: Titration: 03/17/22 13:46 Dose: 0.4 mcg/kg/hr, 8 mls/hr Documented By: Titration: 03/17/22 13:06 Dose: 0.5 mcg/kg/hr, 10 mls/hr Documented By: Titration: 03/17/22 11:02 Dose: 0.6 mcg/kg/hr, 12 mls/hr Documented By: Admin: 03/17/22 10:59 Dose: 0.5 mcg/kg/hr, 10 mls/hr Documented By: TB Co-signed By: TMG Titration: 03/17/22 10:59 Dose: 0.5 mcg/kg/hr, 10 mls/hr Documented By: TB Co-signed By: TMG Titration: 03/17/22 09:12 Dose: 0.5 mcg/kg/hr, 10 mls/hr Documented By: Admin: 03/17/22 08:24 Dose: 0.4 mcg/kg/hr, 8 mls/hr Documented By: TB Co-signed By: NATALY Piperacillin Sod/Tazobactam (Sod 4.5 gm/ Dextrose) 120 mls @ 30 mls/hr IV Q8H NAZ; Protocol Stop: 03/27/22 06:29 Last Admin: 03/17/22 10:12 Dose: Not Given Documented By: TB Famotidine 20 mg/ Syringe 5 mls @ 2.5 mls/min IV BID NAZ Stop: 04/16/22 08:59 Last Admin: 03/17/22 10:12 Dose: Not Given Documented By: TB Potassium Chloride (K [place] / Wtr) 20 meq in 100 mls @ 50 mls/hr IV Q2H NAZ Stop: 03/17/22 13:29 Last Infusion: 03/17/22 14:18 Dose: 0 mls/hr Documented By: Admin: 03/17/22 11:37 Dose: 50 mls/hr Documented By: Infusion: 03/17/22 11:37 Dose: 50 mls/hr Documented By: Admin: 03/17/22 09:42 Dose: 50 mls/hr Documented By: MEMO Sodium Phosphate 30 mmol/ (Sodium Chloride) 510 mls @ 88 mls/hr IV NOW STA Stop: 03/17/22 14:58 Last Infusion: 03/17/22 16:11 Dose: 0 mls/hr Documented By: Admin: 03/17/22 09:42 Dose: 88 mls/hr Documented By: TB Magnesium Sulfate/Dextrose (Magnesium Sulfate / D5w) 1 gm in 100 mls @ 50 mls/hr IV Q2H NAZ Stop: 03/17/22 20:59 Last Admin: 03/17/22 21:08 Dose: Not Given Documented By: Infusion: 03/17/22 21:08 Dose: 0 mls/hr Documented By: Admin: 03/17/22 16:54 Dose: 50 mls/hr Documented By: Infusion: 03/17/22 16:54 Dose: 50 mls/hr Documented By: Admin: 03/17/22 15:25 Dose: 50 mls/hr Documented By: Infusion: 03/17/22 15:25 Dose: 50 mls/hr Documented By: Admin: 03/17/22 13:30 Dose: 50 mls/hr Documented By: NATALY Potassium Chloride (K [place] / Wtr) 20 meq in 100 mls @ 50 mls/hr IV Q2H NAZ Stop: 03/18/22 05:37 Last Infusion: 03/18/22 06:05 Dose: 0 mls/hr Documented By: Admin: 03/18/22 04:00 Dose: 50 mls/hr Documented By: Infusion: 03/18/22 04:00 Dose: 50 mls/hr Documented By: Admin: 03/18/22 02:24 Dose: 50 mls/hr Documented By: KIERSTEN Potassium Chloride (K [place] / Wtr) 20 meq in 100 mls @ 50 mls/hr IV ONE ONE Stop: 03/18/22 08:17 Last Infusion: 03/18/22 09:36 Dose: 0 mls/hr Documented By: Admin: 03/18/22 07:25 Dose: 50 mls/hr Documented By: TERA Ioversol (Optiray 300 500ml) 100 ml IV ONCE ONE Stop: 03/17/22 05:35 Last Admin: 03/17/22 05:35 Dose: 94 ml Documented By: DIONTE Meperidine HCl (Meperidine Hcl 25 Mg/Ml Carp/Vial) 25 mg IV NOW STA Stop: 03/17/22 12:36 Last Admin: 03/17/22 12:57 Dose: 25 mg Documented By: NATALY Meperidine HCl (Meperidine Hcl 25 Mg/Ml Carp/Vial) 25 mg IV ONE ONE Stop: 03/17/22 18:04 Last Admin: 03/17/22 18:17 Dose: 25 mg Documented By: NATALY Midazolam HCl (Midazolam Hcl 1 Mg/Ml 2ml Vial) Confirm Administered Dose 4 mg .ROUTE .STK-MED ONE Stop: 03/17/22 06:51 Last Admin: 03/17/22 08:21 Dose: Not Given Documented By: MEMO Midazolam HCl (Midazolam Hcl 5 Mg/Ml 1 Ml Vial) 4 mg IV NOW STA Stop: 03/17/22 07:06 Last Admin: 03/17/22 08:21 Dose: 4 mg Documented By: MEMO Bernardaneous (Rapid Sequence Induction Bag) Confirm Administered Dose 1 each .ROUTE .STK-MED ONE Stop: 03/17/22 04:57 Last Admin: 03/17/22 05:25 Dose: 1 each Documented By: HERBERT Kuhn (Stat Iv Infusion Titration Per Protocol) 1 each N/A NOW STA Stop: 03/17/22 06:10 Last Admin: 03/17/22 09:54 Dose: Not Given Documented By: MEMO Propofol (Propofol Iv Emulsion 10 Mg/Ml 100 Ml Vial) Confirm Administered Dose 1,000 mg IV .STK-MED ONE Stop: 03/17/22 05:02 Last Admin: 03/17/22 06:18 Dose: Not Given Documented By: NAN Rocuronium [place] (Rocuronium [place] 10 Mg/Ml 5 Ml Vial) Confirm Administered Dose 50 mg IV .STK-MED ONE Stop: 03/17/22 07:14 Last Admin: 03/17/22 08:21 Dose: Not Given Documented By: MEMO Rocuronium [place] (Rocuronium [place] 10 Mg/Ml 5 Ml Vial) 50 mg IV ONCE STA Stop: 03/17/22 07:19 Last Admin: 03/17/22 08:21 Dose: 50 mg Documented By: TB Co-signed By: TMG Description This is a 21 electrode EEG with a single channel dedicated to limited EKG. The electrodes were placed in accordance with the International 10-20 system. Interpretation Background: There is diffuse slowing, with low amplitude, delta and theta waveforms, without interhemispheric asymmetry. Background activity is composed of very low amplitude, mostly frontotemporal 1 to 3 Hz delta, intermixed with very low amplitude, 4 to 5 Hz theta waveforms. There is extensive amount of muscle contraction and electrical artifacts. There is no distinctive posterior rhythm. Sleep: There is no sleep-related pattern. Stimulation maneuvers: Photic stimulations do not induce posterior driving responses. Tactile stimuli does not induce obvious reactivity. Abnormal activity: There is no electrographic seizures or obvious epileptogenic discharge. During shivering, there is no electrographic epileptiform correlates but muscle contraction artifacts. Impression: This is an abnormal EEG, recorded in sedated and comatose state, due to diffuse slowing and poor reactivity, consistent with bihemispheric dysfunction, as seen in encephalopathies. There is no EEG pattern to help prognostication in this study. There is no electrographic seizures or epileptogenic discharge. Clinical Correlation This study does not suggest any epileptogenic activity, however, the patient is on sedation currently which might suppress epileptogenic discharges. A follow- up study in 24 to 48 hours is recommended.
--- NOTE | 2022-03-18 17:40 | Electrocardiogram Report ---
Test Reason : Blood Pressure : / mmHG Vent. Rate : 058 BPM Atrial Rate : 058 BPM P-R Int : 160 ms QRS Dur : 106 ms QT Int : 400 ms P-R-T Axes : 081 076 065 degrees QTc Int : 393 ms Poor data quality, interpretation may be adversely affected Sinus bradycardia Abnormal ECG When compared with ECG of 17-MAR-2022 12:23, QRS duration has increased Confirmed by Shady Betancourt ([id number]) on 03/18/2022 5:40:29 PM Referred By: [facility] Confirmed By:Luis Angel Betancourt
--- NOTE | 2022-03-18 17:45 | Electrocardiogram Report ---
Test Reason : Blood Pressure : / mmHG Vent. Rate : 068 BPM Atrial Rate : 068 BPM P-R Int : 164 ms QRS Dur : 102 ms QT Int : 466 ms P-R-T Axes : 085 078 066 degrees QTc Int : 495 ms Poor data quality, interpretation may be adversely affected Normal sinus rhythm Prolonged QT Abnormal ECG When compared with ECG of 17-MAR-2022 16:37, (unconfirmed) No significant change was found Confirmed by Shady Betancourt ([id number]) on 03/18/2022 5:45:31 PM Referred By: [facility] Confirmed By:Luis Angel Betancourt
--- NOTE | 2022-03-18 17:46 | Electrocardiogram Report ---
Test Reason : Blood Pressure : / mmHG Vent. Rate : 056 BPM Atrial Rate : 056 BPM P-R Int : 190 ms QRS Dur : 092 ms QT Int : 538 ms P-R-T Axes : 084 084 079 degrees QTc Int : 519 ms Poor data quality, interpretation may be adversely affected Sinus bradycardia ST elevation, consider early repolarization, pericarditis, or injury Prolonged QT Abnormal ECG When compared with ECG of 17-MAR-2022 20:18, (unconfirmed) ST more elevated in Inferior leads Confirmed by Shady Betancourt ([id number]) on 03/18/2022 5:46:21 PM Referred By: [facility] Confirmed By:Luis Angel Betancourt
--- NOTE | 2022-03-18 17:49 | Electrocardiogram Report ---
Test Reason : Blood Pressure : / mmHG Vent. Rate : 061 BPM Atrial Rate : 061 BPM P-R Int : 184 ms QRS Dur : 092 ms QT Int : 512 ms P-R-T Axes : 078 082 076 degrees QTc Int : 515 ms Poor data quality, interpretation may be adversely affected Normal sinus rhythm ST elevation, consider early repolarization, pericarditis, or injury Prolonged QT Abnormal ECG When compared with ECG of 18-MAR-2022 00:04, (unconfirmed) No significant change was found Confirmed by Shady Betancourt ([id number]) on 03/18/2022 5:48:53 PM Referred By: [facility] Confirmed By:Luis Angel Betancourt
--- NOTE | 2022-03-18 17:56 | Electrocardiogram Report ---
Test Reason : Blood Pressure : / mmHG Vent. Rate : 059 BPM Atrial Rate : 059 BPM P-R Int : 176 ms QRS Dur : 090 ms QT Int : 522 ms P-R-T Axes : 081 081 074 degrees QTc Int : 516 ms Poor data quality, interpretation may be adversely affected Sinus bradycardia ST elevation, consider early repolarization, pericarditis, or injury Prolonged QT Abnormal ECG When compared with ECG of 18-MAR-2022 03:53, (unconfirmed) No significant change was found Confirmed by Shady Betancourt ([id number]) on 03/18/2022 5:55:41 PM Referred By: [facility] Confirmed By:Luis Angel Betancourt
--- NOTE | 2022-03-18 20:14 | Hospitalist Progress Note ---
Date of Service March 18, 2022 Assessment & Plan (1) Cardiac arrest: Plan: Cardiac arrest/suicide attempt/asphyxiation due to hanging/acute respiratory failure- critical care by ICU (2) Suicide attempt by hanging: (3) Acute respiratory failure: (4) Asphyxiation due to hanging: (5) Colitis: (6) Hyperglycemia: Plan: Placed on Accu-Cheks for hyperglycemic ICU protocol Admission and Anticipated Discharge Date Admission Date: March 17, 2022 Subjective no HPI or ROS. management per ICU Results & Data Results & Data ([facility]) Vital Signs (Past 12 Hours) Vital Signs Temp Temp Pulse Resp BP BP Pulse Ox 03/18/22 20:00 03/18/22 19:00 93.9 F L 93.7 F L 100 H 30 H 140/70 118/56 L 100 03/18/22 18:00 95.9 F L 95.9 F L 102 H 28 H 106/73 132/59 L 100 03/18/22 17:15 93.7 F L 93.7 F L 101 H 24 102/68 126/60 100 03/18/22 16:00 03/18/22 16:00 97 H 03/18/22 16:15 96.3 F L 96.3 F L 97 H 28 H 98/62 L 116/52 L 100 03/18/22 16:11 104 H 29 H 100 03/18/22 14:58 95.0 F L 95.0 F L 104 H 22 93/76 L 132/58 L 100 03/18/22 14:00 93.7 F L 93.7 F L 87 22 111/85 128/62 100 03/18/22 13:00 93.0 F L 93.0 F L 76 22 113/74 127/65 100 03/18/22 12:00 92.3 F L 92.3 F L 70 22 107/70 120/61 100 03/18/22 11:31 91.8 F L 91.8 F L 68 24 112/76 119/64 100 03/18/22 11:31 65 03/18/22 11:31 03/18/22 11:24 65 24 100 03/18/22 11:00 91.4 F L 91.4 F L 64 22 106/70 115/63 03/18/22 10:00 90.7 F L 90.7 F L 60 22 103/73 108/59 L 03/18/22 09:00 89.8 F L 89.6 F L 54 L 22 121/78 109/70 03/18/22 08:49 O2 Del Method FiO2 03/18/22 20:00 03/18/22 19:00 Mechanical Vent 03/18/22 18:00 Mechanical Vent 03/18/22 17:15 Mechanical Vent 03/18/22 16:00 03/18/22 16:00 03/18/22 16:15 Mechanical Vent 03/18/22 16:11 03/18/22 14:58 Mechanical Vent 03/18/22 14:00 Mechanical Vent 03/18/22 13:00 Mechanical Vent 03/18/22 12:00 Mechanical Vent 03/18/22 11:31 03/18/22 11:31 03/18/22 11:31 03/18/22 11:24 03/18/22 11:00 Mechanical Vent 03/18/22 10:00 Mechanical Vent 03/18/22 09:00 Mechanical Vent 03/18/22 08:49 Mechanical Vent PG Care Time/CCT Total # of Minutes Spent Total Time Spent with Patient: Total time spent is greater than 50% in coordination of care (as documented) at patient's floor/unit and/or counseling patient: Coding Level of Care Code None Diagnoses Cardiac arrest I46.9 Suicide attempt by hanging T71.162A Acute respiratory failure J96.00 Asphyxiation due to hanging T71.161A Colitis K52.9 Hyperglycemia R73.9
[2022-03-19] MEDS: MIDAZOLAM HCL 125 MG/250 ML BAG IV PRN ×2 (01:38→19:34)
[2022-03-19] MEDS: propofoL 1,000 MG/100 ML VIAL IV SCH ×7 (02:31→23:29)
[2022-03-19 04:53] LABS: INR 1.2 (0.9-1.1); Partial Thromboplastin Ratio 1.2; Partial Thromboplastin Time 32.4 Seconds (21.0-31.0); Prothrombin Time 12.7 Seconds (9.0-12.0)
[2022-03-19 05:10] LABS: Alanine Aminotransferase 45 U/L (7-52); Albumin Globulin Ratio 1.3 (0.9-2); Albumin Level 3.6 gm/dl (3.4-5.0); Alkaline Phosphatase 61 U/L (34-104); Anion Gap 13 (3-11); Aspartate Aminotransferase 54 U/L (13-39); Bilirubin,Total 1.1 mg/dl (0.2-1.0); Blood Urea Nitrogen 9 mg/dl (6-23); Calcium 8.5 mg/dl (8.5-10.1); Carbon Dioxide 18 mmol/L (21-32); Chloride 108 mmol/L (98-107); Creatinine Clr Calc Pharmacy 193.9 ml/min; Est GFR (African American) > 150.0 ml/min; Est GFR (Non-African American) 132.4 ml/min; Globulin 2.7 gm/dl (2.5-4.0); Glucose 88 mg/dl (70-99(Fasting)); Magnesium 1.5 mg/dl (1.7-2.4); Sodium 139 mmol/L (136-145); Total Protein 6.3 gm/dl (6.0-8.3)
[2022-03-19 05:27] LABS: Basophils # (auto) 0.02 K/uL (0-0.2); Basophils % (auto) 0.1 %; Hematocrit (blood only) 42.5 % (40.1-51.0); Hemoglobin 14.9 g/dl (14.0-18.0); Immature Granulocytes # (auto) 0.12 K/uL (0.00-0.02); Immature Granulocytes % (auto) 0.6 %; Lymphocytes # (auto) 0.95 K/uL (1.2-3.4); Lymphocytes % (auto) 4.7 %; Mean Corpuscular Hgb Conc 35.1 g/dL (32.0-36.0); Mean Corpuscular Volume 82.8 fL (80.0-100.0); Mean Platelet Volume 8.9 fL (9.4-12.4); Monocytes # (auto) 1.27 K/uL (0.24-0.82); Monocytes % (auto) 6.3 %; Neutrophils # (auto) 17.95 K/uL (1.4-6.5); Neutrophils % (auto) 88.3 %; Platelet Count 279 K/uL (130-400); RDW Standard Deviation 39.1 fL (36.4-46.3); Red Blood Count 5.13 M/uL (4.63-6.08); White Blood Count 20.31 K/ul (4.8-10.8)
[2022-03-19] MEDS: ICU ELECTROLYTE REPLACEMENT PROTOCOL SCH ×2 (05:30→16:24)
[2022-03-19] MEDS: MAGNESIUM SULFATE / D5W 1 GM/100 ML BAG IV SCH ×4 (05:59→11:32)
[2022-03-19] MEDS: POTASSIUM CHLORIDE 20 MEQ/15 ML UDC NG SCH ×2 (06:00→09:16)
[2022-03-19 07:38] LABS: iSTAT Art Bld Gas pCO2 Correct 30 mmHg (35-46); iSTAT Art Bld Gas pH Corrected 7.371 (7.35-7.45); iSTAT Arterial Blood Gas HCO3 17 meg/L (19-24); iSTAT Arterial Blood Gas pCO2 30 mmHg (35-46); iSTAT Arterial Blood Gas pH 7.37 (7.35-7.45); iSTAT Arterial Blood Gas pO2 80 mmHg (80-95); iSTAT Arterial Blood Gas pO2 C 79; iSTAT Carbon Dioxide 18 mmol/L (24-31); iSTAT FiO2 21 %; iSTAT Hematocrit 43 % (42-52); iSTAT Hemoglobin 14.6 g/dl (14.0-18.0); iSTAT Potassium 3.1 mmol/L (3.3-5.0); iSTAT Site Art Line; iSTAT Sodium 140 mmol/L (135-144)
[2022-03-19] MEDS: HEPARIN SOD 5,000 UNIT/0.5 ML VIAL SQ SCH ×2 (07:43→21:29)
--- NOTE | 2022-03-19 07:44 | Critical Care Progress Note ---
Date of Service March 19, 2022 Assessment & Plan (1) Cardiac arrest: (2) Acute respiratory failure: (3) Colitis: (4) Asphyxiation due to hanging: (5) Suicide attempt by hanging: Plan ICU Assessment and Plan Reason Critically Ill: 41 yo M, prisoner at [facility], found unresponsive after hanging via shoelace and admitted to ICU s/p cardiac arrest Neuro CAM ICU: Sedated Sedation: None Analgesia: None Potential anoxic brain injury secondary to cardiac arrest -EEG 03/18- no overt epileptiform activity, +diffuse slowing consistent with bihemispheric dysfunction, however compromised by muscle artifact and pt being on sedation, f/u study recommended after sedation weaned -Attempt neurologic assessment off sedation to determine need for further imaging/possible neurology consultation Cardiac - Cardiac arrest secondary to asphyxiation s/p ROSC -Hemodynamics- HR 100s, BPs improved, off pressors -Therapeutic hypothermia protocol- pt rewarmed to core temperature and stable at 37 C on 03/19 -Tailor supportive care in wake of cardiac arrest- control hyperpyrexia, hyperglycemia, seizures, hypotension Respiratory - Acute respiratory failure secondary to cardiac arrest -Intubated, ventilator settings- TV 400, RR 22, PEEP 5, FiO2 21 -CXR today pending -Assess extubation readiness as pt continues off sedation GI - -NPO while intubated, NSS 50 cc/hr -Pantoprazole IV RENAL/ELECTROLYTES - Hypophosphatemia -PO4 3.0 today Mg 1.5, K 3.0 -Goal Mg > 2, K > 4 ICU electrolyte repletion protocol Cr 0.46 -> 0.60 today - -Thompson in place ENDO - -Unknown if pt has history of metabolic syndrome -BSG 274 on admission, normal BSGs since -ICU hyperglycemia protocol HEME - -Hgb 14.9, stable ID - -Zosyn started on admission due to concern for colitis -CTAP does not appear to display active colitis -Discontinued Zosyn 03/17 -New leukocytosis WBC 20.3 today with metabolic acidosis suggesting potential infection -Workup pending- UCx, BCx, sputum culture, lactate, procalcitonin, CXR INTEGUMENTARY - None LINES/IV ACCESS - -PIV -Intubated -R radial A-line -Central line -Thompson -OG tube -C collar in place DVT PROPHYLAXIS - -Heparin 5000u BID Thank you for allowing us to be part of this patient's care. Please refer to Dr. Sarmiento's documentation for any further recommendations. Admission and Anticipated Discharge Date Admission Date: March 17, 2022 Supervising Physician Co-Signing Physician Notes Patient seen and examined. EMR reviewed. Discussed on multidisciplinary rounds and with family practice resident as well as with bedside critical care nurse, donor alliance, and neurology. The patient is completed hypothermia protocol. Sedation has been discontinued and we are monitoring clinically. This point time his neurological exam demonstrates oculocephalic reflexes to be present. Pupils are small but reactive. There does appear to be a left preferential deviated gaze. The patient has extensor posturing with painful stimulus. Toes are downgoing. Did not perform cold calorics. He is not really gagging but is overbreathing the ventilator. Will continue to hold sedation at this point in time in hopes of liberating the patient from mechanical ventilator today. He is breathing effectively on his own however secretion management may be an issue secondary to neurological issues. He does have an elevated white blood cell count as well as new anion gap metabolic acidosis. Checking lactate as well as culture data. Hold antibiotics currently pending additional evaluation. Will hold feeding in hopes of ventilator liberation in the next 12 to 24hours. Will update father later today. Anticipate that he will want to have the patient extubated and see how he does. I think the patient's clinical improvement and after discussion with neurology that his EEG shows improvement would favor continued supportive care at this point in time. Unclear what his ultimate outcome would be. Patient remains critically ill at this point time with significant possibility of clinical deterioration and or . A total of 45 minutes in critical care time was spent evaluation management stabilization of this patient Subjective Pt rewarmed and reached core temperature over past 24 hours. No acute events overnight. Still sedated, unresponsive. Pt has been shivering on occasion. Review of Systems Review of Systems: Unresponsive Physical Exam Physical Exam: GENERAL - Sedated, intubated HEAD - NC/AT. EYES - PERRL, anicteric sclerae. EARS - No deformities of external structures b/l NOSE - Midline. No epistaxis or purulent drainage. Septum midline without deviation. MOUTH/OROPHARYNX - No perioral cyanosis. Buccal mucosa pink and moist. ET in pl ricardo NECK - no tracheal deviation LUNGS - intubated, ventilator settings RR 22, TV 450, PEEP 4, FiO2 21% CARDIAC - Tachycardic, regular, normal S1/S2. No murmurs appreciated ABDOMEN - Soft, nondistended EXTREMITIES - No clubbing or peripheral cyanosis. No peripheral edema present. Distal pulses of LE intact b/l NEUROLOGIC - Sedated, pupillary and corneal reflexes intact, downgoing Babinski b/l, withdraws to painful stimuli, no response to commands PSYCH - Sedated Results & Data Results & Data ([facility]) Vital Signs (Past 12 Hours) Vital Signs Temp Temp Temp Pulse Resp BP BP 03/19/22 06:00 37.1 C 117 H 20 115/85 03/19/22 05:00 37 C 110 H 22 124/69 03/19/22 04:19 109 H 23 03/19/22 04:00 36.8 C 36.8 C 110 H 25 H 96/71 L 03/19/22 04:00 03/19/22 03:00 36.8 C 36.8 C 111 H 24 101/73 03/19/22 02:00 36.6 C 36.6 C 108 H 29 H 104/71 03/19/22 01:00 36.5 C 36.5 C 108 H 30 H 91/71 L 03/18/22 23:09 108 H 23 03/19/22 00:00 36.1 C L 36.1 C L 105 H 30 H 93/66 L 03/19/22 00:00 03/18/22 22:00 35.6 C L 35.6 C L 102 H 27 H 92/79 L 03/18/22 19:45 103 H 29 H 03/18/22 21:00 35.5 C L 35.5 C L 101 H 28 H 106/55 L 03/18/22 20:00 03/18/22 20:00 35.2 C L 35.4 C L 103 H 30 H 90/58 L 03/18/22 20:00 BP Pulse Ox O2 Del Method FiO2 03/19/22 06:00 100 Mechanical Vent 03/19/22 05:00 100 Mechanical Vent 03/19/22 04:19 99 21 03/19/22 04:00 128/51 L 100 Mechanical Vent 03/19/22 04:00 21 03/19/22 03:00 136/61 100 Mechanical Vent 03/19/22 02:00 147/66 H 100 Mechanical Vent 03/19/22 01:00 140/60 100 Mechanical Vent 03/18/22 23:09 99 03/19/22 00:00 132/60 100 Mechanical Vent 03/19/22 00:00 03/18/22 22:00 135/61 100 Mechanical Vent 03/18/22 19:45 99 03/18/22 21:00 127/58 L 100 Mechanical Vent 03/18/22 20:00 Mechanical Vent 03/18/22 20:00 128/61 100 Mechanical Vent 03/18/22 20:00 21 Resident Activity Tracking Resident Involvement: Resident Care Provided Care Provided: Adult [facility] Medicine
--- NOTE | 2022-03-19 08:30 | XRay Report ---
XR chest 1V portable CLINICAL HISTORY: leukocytosis COMPARISON STUDY: Chest radiograph March 18, 2022. FINDINGS: Tip of endotracheal tube is 7 cm above the virgie. Tip of nasogastric tube is at least with in the body of the stomach. There is no pneumothorax or pleural effusion. No evidence for pulmonary e donald. Cardiac size is normal. Minimal right lower lung opacity is present. IMPRESSION: 1. Tip of endotracheal tube 7 cm above the virgie. 2. Minimal right lower lung opacity. 2. No evidence for pulmonary edema. 4. No pneumothorax. ACT 112: Negative or not required by law. Electronically signed by: Donta Christie M.D. 03/19/2022 8:29 AM
[2022-03-19 08:43] LABS: Appearance Urine Clear (Clear); Bacteria Urine Automated Negative (Negative); Bilirubin Urine Negative (Negative); Blood Urine Negative (Negative); Color Urine Yellow; Epithelial Cell Urine Auto 0-5 /lpf (0-5); Glucose Urine UA Negative (Negative); Ketones Urine 4+ (Negative); Leukocyte Esterase Urine Trace (Negative); Nitrite Urine Negative (Negative); Protein Urine Trace (Negative); Specific Gravity Urine 1.028 (1.000-1.030); Urobilinogen Urine Negative (Negative); pH Urine 5.5 (4.5-7.5)
--- NOTE | 2022-03-19 09:28 | Electroencephalogram ---
EEG Procedure Note Date of Service March 19, 2022 Start / End Times Start Time: 0845 End Time: 904 Referring Physician CHAPO Shannon History 41-year-old with severe anoxic brain injury post suicidal/hanging attempt March 17. Patient has trembling no obvious seizure activity. Inpatient Medication List Buspirone HCl (Buspirone 15 Mg Tab) 60 mg NG ONCE PRN PRN Reason: For Shivering x 1 dose Stop: 04/16/22 07:30 Last Admin: 03/17/22 08:51 Dose: 60 mg Documented By: MEMO Heparin Sodium (Porcine) (Heparin Sod 5,000 Unit/0.5 Ml Vial) 5,000 units SQ Q12 [facility] Stop: 04/16/22 20:59 Last Admin: 03/19/22 07:43 Dose: 5,000 units Documented By: Admin: 03/18/22 21:06 Dose: 5,000 units Documented By: Admin: 03/18/22 08:36 Dose: 5,000 units Documented By: Admin: 03/17/22 21:10 Dose: 5,000 units Documented By: KIERSTEN Propofol (Diprivan) 1,000 mg in 100 mls @ 0 mls/hr IV .Q0M [facility]; Protocol Stop: 03/20/22 06:14 Last Titration: 03/19/22 07:59 Dose: 0 mcg/kg/min, 0 mls/hr Documented By: Admin: 03/19/22 06:59 Dose: 25 mcg/kg/min, 12 mls/hr Documented By: SG Co-signed By: GPF Titration: 03/19/22 06:42 Dose: 50 mcg/kg/min, 24 mls/hr Documented By: SG Co-signed By: GPF Admin: 03/19/22 02:31 Dose: 50 mcg/kg/min, 24 mls/hr Documented By: SG Co-signed By: TP Titration: 03/19/22 02:31 Dose: 50 mcg/kg/min, 24 mls/hr Documented By: SG Co-signed By: TP Admin: 03/18/22 22:49 Dose: 50 mcg/kg/min, 24 mls/hr Documented By: SG Co-signed By: LDS Titration: 03/18/22 21:30 Dose: 50 mcg/kg/min, 24 mls/hr Documented By: SAROJ Co-signed By: LDS Titration: 03/18/22 18:58 Dose: 50 mcg/kg/min, 24 mls/hr Documented By: SAROJ Co-signed By: TERA Admin: 03/18/22 17:20 Dose: 50 mcg/kg/min, 24 mls/hr Documented By: TERA Co-signed By: ES Titration: 03/18/22 17:18 Dose: 50 mcg/kg/min, 24 mls/hr Documented By: TERA Co-signed By: ES Admin: 03/18/22 13:07 Dose: 50 mcg/kg/min, 24 mls/hr Documented By: TERA Co-signed By: ES Titration: 03/18/22 12:47 Dose: 50 mcg/kg/min, 24 mls/hr Documented By: TERA Co-signed By: ES Admin: 03/18/22 08:39 Dose: Not Given Documented By: Admin: 03/18/22 08:39 Dose: Not Given Documented By: Admin: 03/18/22 08:36 Dose: 50 mcg/kg/min, 24 mls/hr Documented By: TERA Co-signed By: JOLANTA Titration: 03/18/22 08:36 Dose: 40 mcg/kg/min, 19.2 mls/hr Documented By: TERA Co-signed By: KJMi Titration: 03/18/22 08:24 Dose: 40 mcg/kg/min, 19.2 mls/hr Documented By: Titration: 03/18/22 07:50 Dose: 30 mcg/kg/min, 14.4 mls/hr Documented By: Titration: 03/18/22 07:38 Dose: 40 mcg/kg/min, 19.2 mls/hr Documented By: Titration: 03/18/22 07:07 Dose: 50 mcg/kg/min, 24 mls/hr Documented By: TERA Co-signed By: KIERSTEN Admin: 03/18/22 04:50 Dose: 50 mcg/kg/min, 24 mls/hr Documented By: KIERSTEN Co-signed By: SG Titration: 03/18/22 03:17 Dose: 50 mcg/kg/min, 24 mls/hr Documented By: KIERSTEN Co-signed By: SG Admin: 03/17/22 23:06 Dose: 50 mcg/kg/min, 24 mls/hr Documented By: CP Co-signed By: SG Titration: 03/17/22 23:06 Dose: 50 mcg/kg/min, 24 mls/hr Documented By: CP Co-signed By: SG Admin: 03/17/22 21:23 Dose: Not Given Documented By: Titration: 03/17/22 20:40 Dose: 50 mcg/kg/min, 24 mls/hr Documented By: Titration: 03/17/22 20:30 Dose: 45 mcg/kg/min, 21.6 mls/hr Documented By: Titration: 03/17/22 20:20 Dose: 40 mcg/kg/min, 19.2 mls/hr Documented By: Titration: 03/17/22 20:10 Dose: 35 mcg/kg/min, 16.8 mls/hr Documented By: Titration: 03/17/22 20:00 Dose: 30 mcg/kg/min, 14.4 mls/hr Documented By: Titration: 03/17/22 19:30 Dose: 25 mcg/kg/min, 12 mls/hr Documented By: Admin: 03/17/22 18:43 Dose: 20 mcg/kg/min, 9.6 mls/hr Documented By: TB Co-signed By: TMG Titration: 03/17/22 18:43 Dose: 20 mcg/kg/min, 9.6 mls/hr Documented By: TB Co-signed By: TMG Admin: 03/17/22 18:27 Dose: Not Given Documented By: Titration: 03/17/22 13:46 Dose: 20 mcg/kg/min, 9.6 mls/hr Documented By: Titration: 03/17/22 13:06 Dose: 25 mcg/kg/min, 12 mls/hr Documented By: Titration: 03/17/22 12:05 Dose: 30 mcg/kg/min, 14.4 mls/hr Documented By: Titration: 03/17/22 11:05 Dose: 35 mcg/kg/min, 16.8 mls/hr Documented By: Admin: 03/17/22 10:59 Dose: 40 mcg/kg/min, 19.2 mls/hr Documented By: TB Co-signed By: TMG Titration: 03/17/22 09:10 Dose: 50 mcg/kg/min, 24 mls/hr Documented By: MEMO Co-signed By: TMG Titration: 03/17/22 08:24 Dose: 50 mcg/kg/min, 24 mls/hr Documented By: Admin: 03/17/22 06:16 Dose: 80 mcg/kg/min, 38.4 mls/hr Documented By: NAN Co-signed By: CHRISTOPHER Pantoprazole Sodium 40 mg/ (Syringe) 10 mls @ 5 mls/min IV DAILY@1100 NAZ Stop: 04/16/22 10:59 Last Admin: 03/18/22 08:36 Dose: 5 mls/min Documented By: Admin: 03/17/22 09:42 Dose: 5 mls/min Documented By: MEMO Midazolam HCl (Versed) 125 mg in 250 mls @ 0 mls/hr IV .Q0M PRN; Protocol PRN Reason: Sedation Stop: 04/16/22 07:41 Last Titration: 03/19/22 08:00 Dose: 0 mg/hr, 0 mls/hr Documented By: COLE Co-signed By: ES Titration: 03/19/22 07:23 Dose: 8 mg/hr, 16 mls/hr Documented By: COLE Co-signed By: ES Titration: 03/19/22 07:00 Dose: 9 mg/hr, 18 mls/hr Documented By: SAROJ Co-signed By: GPF Titration: 03/19/22 05:30 Dose: 9 mg/hr, 18 mls/hr Documented By: SG Co-signed By: JLP Titration: 03/19/22 04:30 Dose: 10 mg/hr, 20 mls/hr Documented By: SG Co-signed By: TP Admin: 03/19/22 01:38 Dose: 11 mg/hr, 22 mls/hr Documented By: SAROJ Co-signed By: TP Titration: 03/19/22 01:38 Dose: 11 mg/hr, 22 mls/hr Documented By: SAROJ Co-signed By: TP Titration: 03/18/22 18:58 Dose: 11 mg/hr, 22 mls/hr Documented By: SAROJ Co-signed By: TERA Admin: 03/18/22 15:37 Dose: 9 mg/hr, 18 mls/hr Documented By: TERA Co-signed By: CB Titration: 03/18/22 14:58 Dose: 9 mg/hr, 18 mls/hr Documented By: TERA Co-signed By: CB Titration: 03/18/22 07:07 Dose: 9 mg/hr, 18 mls/hr Documented By: TERA Co-signed By: CP Admin: 03/18/22 01:04 Dose: 9 mg/hr, 18 mls/hr Documented By: CP Co-signed By: SG Titration: 03/18/22 01:04 Dose: 9 mg/hr, 18 mls/hr Documented By: CP Co-signed By: SG Titration: 03/17/22 23:30 Dose: 9 mg/hr, 18 mls/hr Documented By: CP Co-signed By: SG Titration: 03/17/22 22:30 Dose: 8.5 mg/hr, 17 mls/hr Documented By: CP Co-signed By: SG Titration: 03/17/22 21:30 Dose: 8 mg/hr, 16 mls/hr Documented By: CP Co-signed By: SG Titration: 03/17/22 20:30 Dose: 7.5 mg/hr, 15 mls/hr Documented By: CP Co-signed By: SG Titration: 03/17/22 19:30 Dose: 7 mg/hr, 14 mls/hr Documented By: CP Co-signed By: SG Titration: 03/17/22 16:11 Dose: 6 mg/hr, 12 mls/hr Documented By: TB Co-signed By: TMG Titration: 03/17/22 12:05 Dose: 5 mg/hr, 10 mls/hr Documented By: TB Co-signed By: TMG Titration: 03/17/22 11:05 Dose: 4 mg/hr, 8 mls/hr Documented By: TB Co-signed By: TMG Titration: 03/17/22 10:04 Dose: 3 mg/hr, 6 mls/hr Documented By: TB Co-signed By: TMG Titration: 03/17/22 09:01 Dose: 2 mg/hr, 4 mls/hr Documented By: TB Co-signed By: TMG Admin: 03/17/22 08:00 Dose: 1 mg/hr, 2 mls/hr Documented By: MEMO Co-signed By: TMG Sodium Chloride (Nss 1000ml) 1,000 mls @ 50 mls/hr IV .Q20H NAZ Stop: 04/16/22 08:44 Last Admin: 03/18/22 22:49 Dose: 50 mls/hr Documented By: Infusion: 03/18/22 22:49 Dose: 50 mls/hr Documented By: Infusion: 03/18/22 07:07 Dose: 50 mls/hr Documented By: Admin: 03/18/22 04:01 Dose: 50 mls/hr Documented By: Infusion: 03/18/22 04:01 Dose: 50 mls/hr Documented By: Admin: 03/17/22 09:12 Dose: 50 mls/hr Documented By: MEMO Norepinephrine Bitartrate (Levophed/D5w) 4 mg in 250 mls @ 13.875 mls/hr IV .Q18H2M NAZ; Protocol Stop: 04/17/22 08:29 Last Titration: 03/19/22 07:22 Dose: 0 mcg/kg/min, 0 mls/hr Documented By: Titration: 03/18/22 14:06 Dose: 0 mcg/kg/min, 0 mls/hr Documented By: Admin: 03/18/22 08:37 Dose: 0.05 mcg/kg/min, 13.9 mls/hr Documented By: TERA Co-signed By: KJL Magnesium Sulfate/Dextrose (Magnesium Sulfate / D5w) 1 gm in 100 mls @ 50 mls/hr IV Q2H NAZ Stop: 03/19/22 13:44 Last Admin: 03/19/22 07:43 Dose: 50 mls/hr Documented By: Infusion: 03/19/22 07:43 Dose: 50 mls/hr Documented By: Admin: 03/19/22 05:59 Dose: 50 mls/hr Documented By: SAROJ Midazolam HCl (Midazolam Bolus From Bag) 2 mg IV Q60M PRN PRN Reason: Sedation Stop: 04/16/22 07:41 Last Admin: 03/17/22 12:05 Dose: 2 mg Documented By: Admin: 03/17/22 11:05 Dose: 2 mg Documented By: Admin: 03/17/22 10:05 Dose: 2 mg Documented By: Admin: 03/17/22 09:05 Dose: 2 mg Documented By: MEMO Miscellaneous (Icu Electrolyte Replacement Protocol) 1 each N/A BID@06,18 NAZ; Protocol Stop: 03/24/22 17:59 Last Admin: 03/19/22 05:30 Dose: 1 each Documented By: Admin: 03/18/22 18:11 Dose: Not Given Documented By: Admin: 03/18/22 06:18 Dose: 1 each Documented By: Admin: 03/17/22 18:27 Dose: Not Given Documented By: TB Potassium Chloride (Potassium Chloride 20 Meq/15 Ml Udc) 40 meq NG Q4H NAZ Stop: 03/19/22 09:46 Last Admin: 03/19/22 09:16 Dose: 40 meq Documented By: Admin: 03/19/22 06:00 Dose: 40 meq Documented By: SAROJ Tramadol HCl (Tramadol Hcl 50 Mg Tablet) 50 mg NG Q6H PRN PRN Reason: Shivering Stop: 04/16/22 19:50 Last Admin: 03/17/22 20:10 Dose: 50 mg Documented By: KIERSTEN Discontinued Medications Sodium Chloride (Nss) 500 mls @ 999 mls/hr IV .Q31M NAZ Stop: 03/17/22 05:45 Last Admin: 03/17/22 09:54 Dose: Not Given Documented By: MEMO Dexmedetomidine/Sodium Chloride (Precedex) 200 mcg in 50 mls @ 8 mls/hr IV .Q6H15M NAZ; Protocol Stop: 03/21/22 06:29 Last Admin: 03/18/22 08:29 Dose: Not Given Documented By: Titration: 03/18/22 07:07 Dose: 0 mcg/kg/hr, 0 mls/hr Documented By: Admin: 03/18/22 02:25 Dose: Not Given Documented By: Admin: 03/17/22 20:28 Dose: Not Given Documented By: Titration: 03/17/22 14:27 Dose: 0 mcg/kg/hr, 0 mls/hr Documented By: Titration: 03/17/22 14:01 Dose: 0.2 mcg/kg/hr, 4 mls/hr Documented By: Titration: 03/17/22 13:46 Dose: 0.4 mcg/kg/hr, 8 mls/hr Documented By: Titration: 03/17/22 13:06 Dose: 0.5 mcg/kg/hr, 10 mls/hr Documented By: Titration: 03/17/22 11:02 Dose: 0.6 mcg/kg/hr, 12 mls/hr Documented By: Admin: 03/17/22 10:59 Dose: 0.5 mcg/kg/hr, 10 mls/hr Documented By: TB Co-signed By: TMG Titration: 03/17/22 10:59 Dose: 0.5 mcg/kg/hr, 10 mls/hr Documented By: TB Co-signed By: TMG Titration: 03/17/22 09:12 Dose: 0.5 mcg/kg/hr, 10 mls/hr Documented By: Admin: 03/17/22 08:24 Dose: 0.4 mcg/kg/hr, 8 mls/hr Documented By: TB Co-signed By: NATALY Piperacillin Sod/Tazobactam (Sod 4.5 gm/ Dextrose) 120 mls @ 30 mls/hr IV Q8H NAZ; Protocol Stop: 03/27/22 06:29 Last Admin: 03/17/22 10:12 Dose: Not Given Documented By: TB Famotidine 20 mg/ Syringe 5 mls @ 2.5 mls/min IV BID NAZ Stop: 04/16/22 08:59 Last Admin: 03/17/22 10:12 Dose: Not Given Documented By: TB Potassium Chloride ([place] / Wtr) 20 meq in 100 mls @ 50 mls/hr IV Q2H NAZ Stop: 03/17/22 13:29 Last Infusion: 03/17/22 14:18 Dose: 0 mls/hr Documented By: Admin: 03/17/22 11:37 Dose: 50 mls/hr Documented By: Infusion: 03/17/22 11:37 Dose: 50 mls/hr Documented By: Admin: 03/17/22 09:42 Dose: 50 mls/hr Documented By: TB Sodium Phosphate 30 mmol/ (Sodium Chloride) 510 mls @ 88 mls/hr IV NOW STA Stop: 03/17/22 14:58 Last Infusion: 03/17/22 16:11 Dose: 0 mls/hr Documented By: Admin: 03/17/22 09:42 Dose: 88 mls/hr Documented By: MEMO Magnesium Sulfate/Dextrose (Magnesium Sulfate / D5w) 1 gm in 100 mls @ 50 mls/hr IV Q2H NAZ Stop: 03/17/22 20:59 Last Admin: 03/17/22 21:08 Dose: Not Given Documented By: Infusion: 03/17/22 21:08 Dose: 0 mls/hr Documented By: Admin: 03/17/22 16:54 Dose: 50 mls/hr Documented By: Infusion: 03/17/22 16:54 Dose: 50 mls/hr Documented By: Admin: 03/17/22 15:25 Dose: 50 mls/hr Documented By: Infusion: 03/17/22 15:25 Dose: 50 mls/hr Documented By: Admin: 03/17/22 13:30 Dose: 50 mls/hr Documented By: NATALY Potassium Chloride ([place] / Wtr) 20 meq in 100 mls @ 50 mls/hr IV Q2H NAZ Stop: 03/18/22 05:37 Last Infusion: 03/18/22 06:05 Dose: 0 mls/hr Documented By: Admin: 03/18/22 04:00 Dose: 50 mls/hr Documented By: Infusion: 03/18/22 04:00 Dose: 50 mls/hr Documented By: Admin: 03/18/22 02:24 Dose: 50 mls/hr Documented By: KIERSTEN Potassium Chloride ([place] / Wtr) 20 meq in 100 mls @ 50 mls/hr IV ONE ONE Stop: 03/18/22 08:17 Last Infusion: 03/18/22 09:36 Dose: 0 mls/hr Documented By: Admin: 03/18/22 07:25 Dose: 50 mls/hr Documented By: TERA Ioversol (Optiray 300 500ml) 100 ml IV ONCE ONE Stop: 03/17/22 05:35 Last Admin: 03/17/22 05:35 Dose: 94 ml Documented By: DIONTE Meperidine HCl (Meperidine Hcl 25 Mg/Ml Carp/Vial) 25 mg IV NOW STA Stop: 03/17/22 12:36 Last Admin: 03/17/22 12:57 Dose: 25 mg Documented By: NATALY Meperidine HCl (Meperidine Hcl 25 Mg/Ml Carp/Vial) 25 mg IV ONE ONE Stop: 03/17/22 18:04 Last Admin: 03/17/22 18:17 Dose: 25 mg Documented By: NATALY Midazolam HCl (Midazolam Hcl 1 Mg/Ml 2ml Vial) Confirm Administered Dose 4 mg .ROUTE .STK-MED ONE Stop: 03/17/22 06:51 Last Admin: 03/17/22 08:21 Dose: Not Given Documented By: MEMO Midazolam HCl (Midazolam Hcl 5 Mg/Ml 1 Ml Vial) 4 mg IV NOW STA Stop: 03/17/22 07:06 Last Admin: 03/17/22 08:21 Dose: 4 mg Documented By: MEMO Bernardaneous (Rapid Sequence Induction Bag) Confirm Administered Dose 1 each .ROUTE .STK-MED ONE Stop: 03/17/22 04:57 Last Admin: 03/17/22 05:25 Dose: 1 each Documented By: HERBERT Kuhn (Stat Iv Infusion Titration Per Protocol) 1 each N/A NOW STA Stop: 03/17/22 06:10 Last Admin: 03/17/22 09:54 Dose: Not Given Documented By: MEMO Propofol (Propofol Iv Emulsion 10 Mg/Ml 100 Ml Vial) Confirm Administered Dose 1,000 mg IV .STK-MED ONE Stop: 03/17/22 05:02 Last Admin: 03/17/22 06:18 Dose: Not Given Documented By: NAN Rocuronium [place] (Rocuronium [place] 10 Mg/Ml 5 Ml Vial) Confirm Administered Dose 50 mg IV .ST-MED ONE Stop: 03/17/22 07:14 Last Admin: 03/17/22 08:21 Dose: Not Given Documented By: MEMO Rocuronium [place] (Rocuronium [place] 10 Mg/Ml 5 Ml Vial) 50 mg IV ONCE STA Stop: 03/17/22 07:19 Last Admin: 03/17/22 08:21 Dose: 50 mg Documented By: MEMO Co-signed By: NATALY Description This is a 21 electrode EEG with a single channel dedicated to limited EKG. The electrodes were placed in accordance with the International 10-20 system. Interpretation Patient has been off all sedation and PHERESIS NURSE acting medication. He has been "Re warmed". Throughout the entire recording the patient had intermittent fine movements of his head, reminiscent of a fine shaking or tremor. The predominant background activity consists of an irregular 6-7 Hz activity, of up to 20 mV in amplitude,seen symmetrically distributed over the posterior head regions bilaterally, spreading anteriorly to most all head regions. in addition, throughout the recording, there were multiple times of higher amplitude ( 30-40 mV) 4-5 hertz activity seen in a generalized fashion for seconds at a time. this activity does not react with alerting procedures. Photic stimulation was performed and elicited no change in the background activity and no abnormal responses were seen. Hyperventilation was not performed on this unresponsive patient. A Mild amount of muscle tension and movement artifact activity contaminated the recording, yet did not hinder interpretation to any significant degree. Throughout ther ecording, no focal abnormalities or potentially epileptogenic discharges are seen ( even with the fine movements). In summary, this EEG was abnormal during wakefulness, as noted by mild (to at times moderate) generalized slowing. No focal abnormalities or potentially epileptogenic discharges were seen. Clinical Correlation There was no evidence of ongoing subclinical seizure activity. [facility] EEG Procedure Codes Indication for Procedure (1) Hypoxic-ischemic encephalopathy: Neurology Neurology: 30347 EEG include record awake & drowsy
[2022-03-19] MEDS: PANTOprazole 40 MG in SYRINGE 0 ML IV SCH (10:32)
--- NOTE | 2022-03-19 11:25 | Billing Data ---
Date of Service March 19, 2022 Coding Level of Care Code Critical Care 1st - mins
[2022-03-19] MEDS ORDERED: fentaNYL citrate 100 MCG/2 ML VIAL IV STA (12:47)
[2022-03-19] MEDS ORDERED: fentaNYL citrate 100 MCG/2 ML VIAL ONE (12:53)
[2022-03-19] MEDS: MIDAZOLAM BOLUS FROM BAG IV PRN (14:41)
[2022-03-19 14:51] LABS: Calcium 8.7 mg/dl (8.5-10.1); Creatinine Clr Calc Pharmacy 149.4 ml/min; Est GFR (African American) 136.8 ml/min; Potassium 3.7 mmol/L (3.5-5.1)
[2022-03-19] MEDS: fentaNYL citrate 100 MCG/2 ML VIAL IV PRN (15:09)
[2022-03-19] MEDS: PROPOFOL BOLUS FROM BAG IV PRN ×2 (15:15→16:25)
--- NOTE | 2022-03-19 15:37 | Communication Note ---
Date of Service: March 19, 2022 Patient reassessed frequently throughout the day. His sedation was discontinued and he was following some commands including being able to stick his tongue out. He is moving all 4 extremities. He is breathing spontaneously and was on pressure support ventilation. I discussed with the patient's father on the phone. He reiterates that Uri would not have wanted any of these interventions in the first place. He is agreeable to extubation with no plans to pursue reintubation if the patient should fail from a respiratory standpoint. As we were preparing to extubate the patient, we were contacted by [facility]. They received permission from the care home to contact the family. According to discussions with the donor outside industrial sales representative, family would like to pursue organ donation if possible. In light of this, they are evaluating him for donation after cardiac . It is my professional opinion that the patient is unlikely to within an acceptable timeframe if extubated however they wish to pursue additional evaluation. They have requested that he remain intubated. We will restart his propofol to keep him comfortable. Additional assessments per [facility]. Additional critical care time to this point 97 minutes. Coding Level of Care Code Critical Care ea addt'l 30 min Time Spent (min) 97 Comment [id number]
[2022-03-19] MEDS ORDERED: POTASSIUM CHLORIDE 20 MEQ/15 ML UDC NG STA (15:40)
--- NOTE | 2022-03-19 15:56 | XRay Report ---
SINGLE VIEW CHEST CLINICAL HISTORY: Intubation. FINDINGS: An AP, portable, supine chest radiograph is compared to study dated 03/19/2022. Endotracheal and enteric tubes are unchanged in position. The cardiomediastinal silhouette is unremarkable. There is airspace consolidation at the left lung base. Minimal opacities are also seen at the right lung ba se. No large pleural effusion or pneumothorax is seen. There is chronic posttraumatic deformity of th e right clavicle. IMPRESSION: 1. Stable lines and tubes. 2. There is airspace consolidation at the left lung base which is new from today's earlier examinatio n. Correlate clinically for evidence of pneumonia/aspiration pneumonitis. 3. Minimal opacities are also suggested at the right lung base. ACT 112: Negative or not required by law. Electronically signed by: Emerson Tirado M.D. 03/19/2022 3:54 PM
[2022-03-19 16:26] LABS: Base Excess ABG -5.6 mEq/L (-9-1.8); HCO3 ABG 18 mmol/L (19-24); Oxygen Saturation ABG 98.3 % (90-95); PCO2 ABG 30 mmHg (35-46); PO2 ABG 82 mmHg (80-95); pH ABG 7.39 (7.35-7.45)
[2022-03-19 16:28] LABS: Hematocrit (blood only) 41.6 % (40.1-51.0); Hemoglobin 14.4 g/dl (14.0-18.0); Mean Corpuscular Hemoglobin 28.7 pg (25.0-34.0); Mean Corpuscular Hgb Conc 34.6 g/dL (32.0-36.0); Mean Corpuscular Volume 82.9 fL (80.0-100.0); Platelet Count 290 K/uL (130-400); RDW Coefficient of Variation 13.4 % (11.5-14.5); Red Blood Count 5.02 M/uL (4.63-6.08); White Blood Count 20.84 K/ul (4.8-10.8)
[2022-03-19 16:38] LABS: Allen Test Pos (Pos)
[2022-03-19 16:46] LABS: INR 1.2 (0.9-1.1); Partial Thromboplastin Ratio 1.1; Partial Thromboplastin Time 29.1 Seconds (21.0-31.0); Prothrombin Time 12.8 Seconds (9.0-12.0)
[2022-03-19 16:48] LABS: Basophils # (auto) 0.04 K/uL (0-0.2); Basophils % (auto) 0.2 %; Immature Granulocytes # (auto) 0.13 K/uL (0.00-0.02); Immature Granulocytes % (auto) 0.6 %; Lymphocytes # (auto) 0.22 K/uL (1.2-3.4); Lymphocytes % (auto) 1.1 %; Monocytes % (auto) 3.4 %; Neutrophils # (auto) 19.75 K/uL (1.4-6.5); Neutrophils % (auto) 94.7 %
--- NOTE | 2022-03-19 16:51 | Hospitalist Progress Note ---
Date of Service March 19, 2022 Assessment & Plan (1) Cardiac arrest: Plan: Cardiac arrest/suicide attempt/asphyxiation due to hanging/acute respiratory failure- critical care by ICU (2) Suicide attempt by hanging: (3) Acute respiratory failure: (4) Asphyxiation due to hanging: (5) Colitis: (6) Hyperglycemia: Plan: Placed on Accu-Cheks for hyperglycemic ICU protocol Admission and Anticipated Discharge Date Admission Date: March 17, 2022 Subjective no HPI or ROS. per ICU. Physical Exam Physical Exam: intubated, does not appear in pain Results & Data Results & Data ([place]) Vital Signs (Past 12 Hours) Vital Signs Temp Temp Temp Pulse Resp BP BP 03/19/22 12:00 130 H 18 03/19/22 16:07 126 H 26 H 03/19/22 15:47 126 H 26 H 03/19/22 12:02 136 H 16 03/19/22 12:02 138/101 H 03/19/22 12:00 99.5 F 136 H 18 03/19/22 11:30 126 H 14 03/19/22 11:00 99.0 F 122 H 24 03/19/22 10:30 138 H 20 03/19/22 10:01 135 H 17 03/19/22 10:01 142/86 H 03/19/22 10:00 98.8 F 131 H 13 03/19/22 12:04 99.5 F 99.5 F 136 H 16 96/71 L 03/19/22 12:00 128 H 03/19/22 12:00 03/19/22 09:30 98.8 F 128 H 19 03/19/22 09:01 125 H 15 03/19/22 09:01 98.8 F 121/75 03/19/22 09:00 127 H 22 03/19/22 08:30 98.8 F 126 H 19 03/19/22 08:01 120 H 18 03/19/22 08:01 147/98 H 03/19/22 08:00 98.8 F 120 H 18 03/19/22 08:00 98.8 F 98.8 F 03/19/22 08:05 122 H 14 03/19/22 08:00 03/19/22 08:00 98.8 F 28 H 03/19/22 08:00 03/19/22 08:00 03/19/22 08:00 122 H 03/19/22 07:30 109 H 17 03/19/22 07:00 115 H 22 03/19/22 07:00 111/77 03/19/22 06:30 113 H 22 03/19/22 06:00 98.8 F 117 H 20 115/85 03/19/22 05:00 98.6 F 110 H 22 124/69 BP Pulse Ox O2 Del Method FiO2 03/19/22 12:00 94 35 03/19/22 16:07 94 40 03/19/22 15:47 93 40 03/19/22 12:02 93 03/19/22 12:02 03/19/22 12:00 93 03/19/22 11:30 100 03/19/22 11:00 86 L 03/19/22 10:30 88 L 03/19/22 10:01 91 03/19/22 10:01 03/19/22 10:00 91 03/19/22 12:04 128/51 L 03/19/22 12:00 03/19/22 12:00 21 03/19/22 09:30 91 03/19/22 09:01 93 03/19/22 09:01 03/19/22 09:00 92 03/19/22 08:30 93 03/19/22 08:01 100 03/19/22 08:01 03/19/22 08:00 100 03/19/22 08:00 03/19/22 08:05 96 21 03/19/22 08:00 Mechanical Vent 03/19/22 08:00 03/19/22 08:00 21 03/19/22 08:00 Mechanical Vent 21 03/19/22 08:00 03/19/22 07:30 99 03/19/22 07:00 100 03/19/22 07:00 03/19/22 06:30 100 03/19/22 06:00 100 Mechanical Vent 21 03/19/22 05:00 100 Mechanical Vent 21 PG Care Time/CCT Total # of Minutes Spent Total Time Spent with Patient: Total time spent is greater than 50% in coordination of care (as documented) at patient's floor/unit and/or counseling patient: Coding Level of Care Code None Diagnoses Cardiac arrest I46.9 Suicide attempt by hanging T71.162A Acute respiratory failure J96.00 Asphyxiation due to hanging T71.161A Colitis K52.9 Hyperglycemia R73.9
[2022-03-19 16:56] LABS: Albumin Globulin Ratio 1.5 (0.9-2); Albumin Level 3.8 gm/dl (3.4-5.0); Bilirubin Direct 0.2 mg/dl (0-0.2); Bilirubin,Total 1.4 mg/dl (0.2-1.0); Calcium 8.2 mg/dl (8.5-10.1); Creatinine Clr Calc Pharmacy 180.3 ml/min; Est GFR (African American) 147.8 ml/min; Est GFR (Non-African American) 127.5 ml/min; Globulin 2.5 gm/dl (2.5-4.0); Potassium 3.3 mmol/L (3.5-5.1); Total Protein 6.3 gm/dl (6.0-8.3)
[2022-03-19] MEDS: SODIUM CHLORIDE 0.9% 1000ML 1,000 ML IV SCH (18:48)
[2022-03-19] MEDS: NOREPINEPHRINE/D5W 4 MG/250 ML PLCT IV SCH (22:28)
[2022-03-19 22:40] LABS: Base Excess ABG -9.5 mEq/L (-9-1.8); HCO3 ABG 13 mmol/L (19-24); Oxygen Saturation ABG 98.7 % (90-95); PCO2 ABG 22 mmHg (35-46); PO2 ABG 83 mmHg (80-95); pH ABG 7.39 (7.35-7.45)
[2022-03-19 22:43] LABS: Allen Test Pos (Pos)
[2022-03-19 22:50] LABS: Basophils # (auto) 0.04 K/uL (0-0.2); Basophils % (auto) 0.3 %; Hematocrit (blood only) 29.8 % (40.1-51.0); Hemoglobin 10.6 g/dl (14.0-18.0); Immature Granulocytes % (auto) 0.6 %; Lymphocytes # (auto) 0.85 K/uL (1.2-3.4); Lymphocytes % (auto) 5.5 %; Mean Corpuscular Hemoglobin 29.5 pg (25.0-34.0); Mean Corpuscular Hgb Conc 35.6 g/dL (32.0-36.0); Monocytes # (auto) 0.57 K/uL (0.24-0.82); Monocytes % (auto) 3.7 %; Neutrophils # (auto) 14.01 K/uL (1.4-6.5); Neutrophils % (auto) 89.9 %; Platelet Count 201 K/uL (130-400); RDW Coefficient of Variation 13.4 % (11.5-14.5); RDW Standard Deviation 40.3 fL (36.4-46.3); Red Blood Count 3.59 M/uL (4.63-6.08); White Blood Count 15.57 K/ul (4.8-10.8)
[2022-03-19 22:52] LABS: INR 1.4 (0.9-1.1); Partial Thromboplastin Ratio 1.2; Partial Thromboplastin Time 33.7 Seconds (21.0-31.0); Prothrombin Time 14.6 Seconds (9.0-12.0)
[2022-03-19 23:15] LABS: Alanine Aminotransferase 27 U/L (7-52); Albumin Globulin Ratio 1.5 (0.9-2); Albumin Level 2.3 gm/dl (3.4-5.0); Alkaline Phosphatase 38 U/L (34-104); Amylase 72 U/L (25-115); Anion Gap 7 (3-11); Aspartate Aminotransferase 31 U/L (13-39); Bilirubin Direct 0.2 mg/dl (0-0.2); Bilirubin,Total 0.7 mg/dl (0.2-1.0); Blood Urea Nitrogen 5 mg/dl (6-23); Calcium 5.3 mg/dl (8.5-10.1); Carbon Dioxide 14 mmol/L (21-32); Chloride 120 mmol/L (98-107); Creatinine Clr Calc Pharmacy 402.2 ml/min; Est GFR (African American) > 150.0 ml/min; Est GFR (Non-African American) > 150.0 ml/min; Globulin 1.5 gm/dl (2.5-4.0); Glucose Fasting 84 mg/dl (70-99); Lipase 6 U/L (11-82); Potassium 2.2 mmol/L (3.5-5.1); Sodium 141 mmol/L (136-145); Total Protein 3.8 gm/dl (6.0-8.3)
[2022-03-19] MEDS ORDERED: CALCIUM CHLORIDE 10% 500 MG in DEXTROSE 5% 50 ML IV STA (23:38)
[2022-03-19] MEDS ORDERED: POTASSIUM CHLORIDE / WTR 10 MEQ/100 ML PLCT IV SCH (23:45)
[2022-03-19] MEDS: POTASSIUM CHLORIDE / WTR 20 MEQ/100 ML PLCT IV SCH (23:56)
[2022-03-20] MEDS: POTASSIUM CHLORIDE / WTR 20 MEQ/100 ML PLCT IV SCH ×3 (01:01→03:18)
[2022-03-20 01:13] LABS: Appearance Urine Cloudy (Clear); Bacteria Urine Automated Negative (Negative); Bilirubin Urine Negative (Negative); Blood Urine 2+ (Negative); Color Urine Yellow; Glucose Urine UA Negative (Negative); Ketones Urine 4+ (Negative); Leukocyte Esterase Urine Trace (Negative); Nitrite Urine Negative (Negative); Protein Urine Trace (Negative); RBC Urine Automated 0-4 /hpf (0-4); Specific Gravity Urine 1.025 (1.000-1.030); Urobilinogen Urine Negative (Negative); pH Urine 5.5 (4.5-7.5)
[2022-03-20] MEDS: MIDAZOLAM BOLUS FROM BAG IV PRN (01:14)
[2022-03-20 01:29] LABS: Uric Acid Crystals Urine Present (None Prsent)
[2022-03-20] MEDS: NSS + 20MEQ KCL 20 MEQ/1,000 ML BAG IV SCH ×2 (02:22→15:05)
[2022-03-20 02:34] LABS: iSTAT Art Bld Gas pCO2 Correct 37 mmHg (35-46); iSTAT Art Bld Gas pH Corrected 7.371 (7.35-7.45); iSTAT Arterial Blood Gas HCO3 21 meg/L (19-24); iSTAT Arterial Blood Gas pCO2 36 mmHg (35-46); iSTAT Arterial Blood Gas pH 7.38 (7.35-7.45); iSTAT Arterial Blood Gas pO2 334 mmHg (80-95); iSTAT Arterial Blood Gas pO2 C 336; iSTAT Carbon Dioxide 22 mmol/L (24-31); iSTAT FiO2 100 %; iSTAT Hematocrit 40 % (42-52); iSTAT Hemoglobin 13.6 g/dl (14.0-18.0); iSTAT Potassium 3.3 mmol/L (3.3-5.0); iSTAT Site Art Line; iSTAT Sodium 139 mmol/L (135-144)
[2022-03-20] MEDS ORDERED: ACETAMINOPHEN 1000 MG/100 ML IV IV ONE (03:14)
[2022-03-20] MEDS: propofoL 1,000 MG/100 ML VIAL IV SCH ×8 (03:37→23:00)
[2022-03-20 04:12] LABS: Basophils # (auto) 0.07 K/uL (0-0.2); Basophils % (auto) 0.4 %; Eosinophils # (auto) 0.02 K/uL (0-0.50); Eosinophils % (auto) 0.1 %; Hematocrit (blood only) 38.5 % (40.1-51.0); Hemoglobin 13.4 g/dl (14.0-18.0); Immature Granulocytes # (auto) 0.28 K/uL (0.00-0.02); Immature Granulocytes % (auto) 1.4 %; Lymphocytes % (auto) 5.1 %; Mean Corpuscular Hemoglobin 28.9 pg (25.0-34.0); Mean Corpuscular Hgb Conc 34.8 g/dL (32.0-36.0); Monocytes # (auto) 0.81 K/uL (0.24-0.82); Monocytes % (auto) 4.1 %; Neutrophils # (auto) 17.35 K/uL (1.4-6.5); Neutrophils % (auto) 88.9 %; Platelet Count 273 K/uL (130-400); RDW Coefficient of Variation 13.4 % (11.5-14.5); RDW Standard Deviation 40.6 fL (36.4-46.3); Red Blood Count 4.64 M/uL (4.63-6.08); White Blood Count 19.53 K/ul (4.8-10.8)
[2022-03-20 04:24] LABS: INR 1.2 (0.9-1.1); Partial Thromboplastin Ratio 1.1; Partial Thromboplastin Time 30.4 Seconds (21.0-31.0); Prothrombin Time 12.6 Seconds (9.0-12.0)
[2022-03-20 04:38] LABS: Alanine Aminotransferase 39 U/L (7-52); Albumin Globulin Ratio 1.4 (0.9-2); Albumin Level 3.4 gm/dl (3.4-5.0); Alkaline Phosphatase 59 U/L (34-104); Anion Gap 7 (3-11); Aspartate Aminotransferase 39 U/L (13-39); BUN Creatinine Ratio 13.2 (10-20); Blood Urea Nitrogen 7 mg/dl (6-23); Calcium 8.4 mg/dl (8.5-10.1); Carbon Dioxide 19 mmol/L (21-32); Chloride 108 mmol/L (98-107); Creatinine Clr Calc Pharmacy 197.3 ml/min; Est GFR (African American) > 150.0 ml/min; Est GFR (Non-African American) 132.4 ml/min; Globulin 2.5 gm/dl (2.5-4.0); Glucose 89 mg/dl (70-99(Fasting)); Magnesium 1.5 mg/dl (1.7-2.4); Potassium 4.7 mmol/L (3.5-5.1); Sodium 134 mmol/L (136-145); Total Protein 5.9 gm/dl (6.0-8.3)
[2022-03-20 04:39] LABS: Alanine Aminotransferase 39 U/L (7-52); Albumin Globulin Ratio 1.4 (0.9-2); Albumin Level 3.4 gm/dl (3.4-5.0); Alkaline Phosphatase 59 U/L (34-104); Amylase 87 U/L (25-115); Anion Gap 6 (3-11); Aspartate Aminotransferase 39 U/L (13-39); Bilirubin Direct 0.2 mg/dl (0-0.2); Blood Urea Nitrogen 7 mg/dl (6-23); Calcium 8.4 mg/dl (8.5-10.1); Carbon Dioxide 20 mmol/L (21-32); Chloride 109 mmol/L (98-107); Creatinine Clr Calc Pharmacy 193.7 ml/min; Est GFR (African American) > 150.0 ml/min; Est GFR (Non-African American) 131.3 ml/min; Globulin 2.5 gm/dl (2.5-4.0); Glucose Fasting 89 mg/dl (70-99); Lipase 12 U/L (11-82); Potassium 4.7 mmol/L (3.5-5.1); Sodium 135 mmol/L (136-145); Total Protein 5.9 gm/dl (6.0-8.3)
[2022-03-20 04:55] LABS: iSTAT Arterial Blood Gas HCO3 22 meg/L (19-24); iSTAT Arterial Blood Gas pCO2 37 mmHg (35-46); iSTAT Arterial Blood Gas pH 7.38 (7.35-7.45); iSTAT Arterial Blood Gas pO2 > 420 mmHg (80-95); iSTAT Carbon Dioxide 23 mmol/L (24-31); iSTAT FiO2 100 %; iSTAT Site Art Line
[2022-03-20] MEDS: MIDAZOLAM HCL 125 MG/250 ML BAG IV PRN (05:47)
--- NOTE | 2022-03-20 07:21 | Electrocardiogram Report ---
Test Reason : Blood Pressure : / mmHG Vent. Rate : 111 BPM Atrial Rate : 111 BPM P-R Int : 150 ms QRS Dur : 086 ms QT Int : 340 ms P-R-T Axes : 078 078 065 degrees QTc Int : 462 ms Sinus tachycardia Otherwise normal ECG When compared with ECG of 18-MAR-2022 07:44, Vent. rate has increased BY [address] less elevated in Inferior leads ST no longer elevated in Anterior leads Confirmed by Shady Betancourt ([id number]) on 03/20/2022 7:21:00 AM Referred By: [facility] Confirmed By:Luis Angel Betancourt
[2022-03-20] MEDS ORDERED: PROPOFOL BOLUS FROM BAG IV PRN (07:35)
[2022-03-20] MEDS ORDERED: STAT IV Infusion **Titration per Protocol STA ×2 (07:35→15:48)
[2022-03-20 07:45] LABS: Estimated Average Glucose 114 mg/dl; Hemoglobin A1C 5.6 % (4.5-5.6)
--- NOTE | 2022-03-20 07:57 | CT Scan Report ---
CT chest diagnostic wo con CT DOSE: 386.81 mGy.cm HISTORY: Aspiration pneumonitis. Follow-up. TECHNIQUE: Multiaxial CT images of the chest were performed without contrast. A dose lowering techni que was utilized adhering to the principles of ALARA. COMPARISON: Abdomen and pelvis CT 03/17/2022. FINDINGS: There is a moderate anterior wedge-shaped compression deformity at T12 which is likely old. This remains unchanged. Nondisplaced fracture within the anterior cortex of the mid sternum. There i s an old nonunited right clavicle fracture. The visualized liver, spleen, and adrenal glands are unre markable. A nasogastric tube terminates in the body of the stomach. The endotracheal tube terminates approximately 5 cm from the virgie. A catheter tip is located within the proximal IVC near the conflu ence of the right atrium. There is respiratory motion artifact. Trace pericardial effusion is noted. The heart is normal in size. There is a normal caliber thoracic aorta. The esophagus is also normal i n caliber. No mediastinal hematoma or lymphadenopathy. No pneumothorax. Mild biapical paraseptal emph ysema is noted. Dense consolidation noted within the majority of the left lower lobe. Additional scat tered tree-in-bud and groundglass densities noted within the lungs posteriorly. This likely represent s a pneumonia and could be secondary to aspiration. The distal left lower lobe bronchi are opacified. IMPRESSION: 1. Dense consolidation within the majority of the left lower lobe with additional scattered tree-in-b ud and groundglass densities within the lungs posteriorly. This likely represents a pneumonia and fav ors aspiration. The distal left lower lobe bronchi are opacified. 2. Nondisplaced acute fracture within the anterior cortex of the mid sternum. 3. Support line placement as described above. ACT 112: Negative or not required by law. Electronically signed by: Hugo Lake M.D. 03/20/2022 7:54 AM
[2022-03-20] MEDS: HEPARIN SOD 5,000 UNIT/0.5 ML VIAL SQ SCH ×2 (08:23→23:00)
[2022-03-20] MEDS: ICU ELECTROLYTE REPLACEMENT PROTOCOL SCH ×2 (09:49→17:52)
[2022-03-20 10:00] LABS: Allen Test Pos (Pos); HCO3 ABG 21 mmol/L (19-24); Oxygen Saturation ABG 98.3 % (90-95); PCO2 ABG 34 mmHg (35-46); PO2 ABG 84 mmHg (80-95)
[2022-03-20 10:14] LABS: INR 1.2 (0.9-1.1); Partial Thromboplastin Ratio 1.2; Partial Thromboplastin Time 31.9 Seconds (21.0-31.0); Prothrombin Time 12.4 Seconds (9.0-12.0)
--- NOTE | 2022-03-20 10:24 | Critical Care Progress Note ---
Date of Service March 20, 2022 Assessment & Plan (1) Cardiac arrest: (2) Acute respiratory failure: (3) Colitis: (4) Asphyxiation due to hanging: (5) Suicide attempt by hanging: Plan ICU Assessment and Plan Reason Critically Ill: 41 yo M, prisoner at [facility], found unresponsive after hanging via shoelace and admitted to ICU s/p cardiac arrest 24-hour events: The patient was stable for potential extubation. Discussed with father who indicated no plans for reintubation. [facility] evaluated the patient and discussed with family. They requested that extubation be delayed until they could assess the patient for potential organ donation. I advised him that I do not think that he would be a DCD candidate as I think it would be unlikely that he would when extubated within an acceptable timeframe, however they have elected to proceed with a evaluation so we have had to keep the patient intubated and increase his sedation over the last 24 hours. He has been hemodynamically stable. The cooling catheter has been placed on standby. He is on minimal vent settings. Recommendations: Neuro: Potential anoxic brain injury although the patient's EEG and imaging studies have shown some improvement and clinically he is improved. He is requiring sedation right now to maintain tolerance and synchrony with the ventilator. We will discontinue his Versed infusions and use Versed pushes. Continue propofol. Await ultimate decision regarding jovi of shawna for potential DCD evaluation. I discussed with the attending physician, Dr. Analia degroot. He is available to assist with pronouncement in the OR in the event the patient is felt to be candidate for DCD. If not, as soon as there evaluation is completed, we will plan on extubating the patient. If he has respiratory difficulties, rapid transition to palliative care will be conducted otherwise continue supportive care. Continue to avoid fevers, hypotension, hypoxemia, or other potential aggravating factors given his underlying neurological injury. No indication for repeat imaging currently Cardiac -likely PEA secondary to hypoxemia and asphyxiation. Hemodynamically stable. No current issues. Echocardiogram from 03/17/2022 without regional wall motion abnormalities and preserved ejection fraction. No significant valvular abnormalities. Small pericardial effusion. Respiratory -patient is maintained on mechanical ventilator due to neurological injury pending organ donation evaluation. Settings are minimal currently. He is oxygenating ventilating well with acceptable blood gas. Chest x-ray demonstrates no acute infiltrates however CT scan performed this morning did demonstrate left lower lobe airspace opacitie with some patchy opacities on the right. See comments under ID. Patient did have his cuff deflated yesterday and had cuff leak which would allow for trial of extubation. No indication for steroids at this point time. GI -keep n.p.o. for now. Depending on the patient's clinical course, may need to consider speech therapy/swallow evaluation and addressing diet/nutrition. Continue PPI RENAL/ELECTROLYTES -continue electrolyte replacement protocol. Urine output adequate and kidney function normal ENDO -glycemic control per protocol HEME -no current issues ID -initial concern for colitis not supported on follow-up imaging/clinical assessment. He received 1 dose of Zosyn on presentation. CT scan does demonstrate consolidation in the bilateral bases left greater than right and he did have a mildly elevated white blood cell count. Tracheal aspirate is growing staph species, nasal MRSA swabs on presentation were negative. Await final sensitivities. Given possible aspiration, will place the patient on Unasyn. No indication for antipseudomonal coverage as the patient does not have risk factors. He has not demonstrated fevers. Leukocytosis will be trended. INTEGUMENTARY - None LINES/IV ACCESS - -PIV -Intubated -R radial A-line -Central line -Thompson -OG tube -C collar in place -will require clinical clearance of C-spine prior to removal of collar DVT PROPHYLAXIS - -Heparin 5000u BID Patient remains critically ill at this point time. Discussed with bedside nurse on several occasions. Discussed with hospitalist. A total of 45 minutes in critical care time was spent evaluation management stabilization of this patient who is critically ill with significant possibility of clinical decline. Admission and Anticipated Discharge Date Admission Date: March 17, 2022 Subjective Patient is intubated and sedated Review of Systems Review of Systems: Unobtainable due to endotracheal tube Physical Exam Constitutional: WD/WN, vitals as above (Intubated and sedated) Neck: trachea midline, no thyromegaly C-collar in place Respiratory: normal respiratory effort, lungs clear to auscultation Cardiovascular: RRR, no murmur, no edema Gastrointestinal (Abdomen): normal bowel sounds, soft, nontender, no hepatosplenomegaly Musculoskeletal: Extremities: extremities normal to inspection Skin: no rashes, warm and dry Neurologic: Sedated on the ventilator Lymphatic: no cervical lymphadenopathy Results & Data Results & Data ([facility]) Vital Signs (Past 12 Hours) Vital Signs Temp Pulse Resp BP Pulse Ox O2 Del Method FiO2 03/20/22 08:42 CPAP, Mechanical Vent 35 03/20/22 08:30 37.1 C 99 H 34 H 98 03/20/22 08:30 102/69 03/20/22 08:00 37.1 C 102 H 38 H 97 03/20/22 08:00 105/68 03/20/22 07:30 37.1 C 102 H 35 H 99 03/20/22 07:30 106/59 L 03/20/22 07:00 37.2 C 103 H 30 H 97 03/20/22 07:00 103/64 03/20/22 06:45 37.2 C 101 H 29 H 95 03/20/22 08:00 35 03/20/22 08:00 102 H 03/20/22 07:30 102 H 33 H 98 35 03/20/22 06:30 98 H 20 111/72 95 03/20/22 06:25 101 H 19 105/71 97 03/20/22 06:22 104 H 23 97 03/20/22 05:45 101 H 34 H 98 03/20/22 05:30 102 H 34 H 103/59 L 97 03/20/22 05:15 100 H 34 H 97 03/20/22 05:00 94 H 19 95/65 L 98 03/20/22 04:45 100 H 32 H 98 03/20/22 04:00 40 03/20/22 04:30 100 H 29 H 99 03/20/22 04:30 105/62 03/20/22 04:15 92 H 23 100 03/20/22 04:01 95 H 18 100 03/20/22 04:00 96 H 22 89/63 L 100 03/20/22 03:45 103 H 23 100 03/20/22 03:30 103 H 24 100 03/20/22 04:26 40 03/20/22 03:45 100 03/20/22 03:30 106 H 18 98 40 03/20/22 03:15 102 H 23 99 03/20/22 03:00 105 H 35 H 108/68 98 03/20/22 02:45 105 H 27 H 98 03/20/22 02:30 105 H 34 H 107/69 98 03/20/22 02:15 106 H 24 98 03/20/22 02:00 110 H 39 H 107/66 98 03/20/22 01:45 105 H 28 H 99 03/20/22 01:30 113 H 38 H 102/58 L 98 03/20/22 01:15 114 H 39 H 97 03/20/22 01:00 112 H 37 H 110/64 98 03/20/22 00:45 111 H 38 H 97 03/20/22 00:30 107 H 27 H 109/65 98 03/20/22 00:15 106 H 24 98 03/20/22 00:00 108 H 8 L 97/66 L 97 03/19/22 23:45 112 H 39 H 97 03/19/22 23:30 112 H 28 H 101/69 97 03/19/22 23:15 113 H 27 H 97 03/20/22 00:00 114 H 03/20/22 00:00 40 03/19/22 23:00 112 H 27 H 114/66 97 03/19/22 22:45 113 H 29 H 97 03/19/22 22:30 115 H 29 H 106/64 96 03/19/22 22:15 116 H 29 H 96 03/19/22 22:45 115 H 33 H 97 40 Critical Care Results & Data Vital Signs (Past 12 Hours) Vital Signs Temp Pulse Resp BP Pulse Ox O2 Del Method FiO2 03/20/22 08:42 CPAP, Mechanical Vent 35 03/20/22 08:30 37.1 C 99 H 34 H 98 03/20/22 08:30 102/69 03/20/22 08:00 37.1 C 102 H 38 H 97 03/20/22 08:00 105/68 03/20/22 07:30 37.1 C 102 H 35 H 99 03/20/22 07:30 106/59 L 03/20/22 07:00 37.2 C 103 H 30 H 97 03/20/22 07:00 103/64 03/20/22 06:45 37.2 C 101 H 29 H 95 03/20/22 08:00 35 03/20/22 08:00 102 H 03/20/22 07:30 102 H 33 H 98 35 03/20/22 06:30 98 H 20 111/72 95 03/20/22 06:25 101 H 19 105/71 97 03/20/22 06:22 104 H 23 97 03/20/22 05:45 101 H 34 H 98 03/20/22 05:30 102 H 34 H 103/59 L 97 03/20/22 05:15 100 H 34 H 97 03/20/22 05:00 94 H 19 95/65 L 98 03/20/22 04:45 100 H 32 H 98 03/20/22 04:00 40 03/20/22 04:30 100 H 29 H 99 03/20/22 04:30 105/62 03/20/22 04:15 92 H 23 100 03/20/22 04:01 95 H 18 100 03/20/22 04:00 96 H 22 89/63 L 100 03/20/22 03:45 103 H 23 100 03/20/22 03:30 103 H 24 100 03/20/22 04:26 40 03/20/22 03:45 100 03/20/22 03:30 106 H 18 98 40 03/20/22 03:15 102 H 23 99 03/20/22 03:00 105 H 35 H 108/68 98 03/20/22 02:45 105 H 27 H 98 03/20/22 02:30 105 H 34 H 107/69 98 03/20/22 02:15 106 H 24 98 03/20/22 02:00 110 H 39 H 107/66 98 03/20/22 01:45 105 H 28 H 99 03/20/22 01:30 113 H 38 H 102/58 L 98 03/20/22 01:15 114 H 39 H 97 03/20/22 01:00 112 H 37 H 110/64 98 03/20/22 00:45 111 H 38 H 97 03/20/22 00:30 107 H 27 H 109/65 98 03/20/22 00:15 106 H 24 98 03/20/22 00:00 108 H 8 L 97/66 L 97 03/19/22 23:45 112 H 39 H 97 03/19/22 23:30 112 H 28 H 101/69 97 03/19/22 23:15 113 H 27 H 97 03/20/22 00:00 114 H 03/20/22 00:00 40 03/19/22 23:00 112 H 27 H 114/66 97 03/19/22 22:45 113 H 29 H 97 03/19/22 22:30 115 H 29 H 106/64 96 03/19/22 22:15 116 H 29 H 96 03/19/22 22:45 115 H 33 H 97 40 Lab & Micro Results (Past 24 Hours) RBC 4.64 M/uL (4.63-6.08) 03/20/22 WBC 19.53 K/ul (4.8-10.8) H 03/20/22 Hgb 13.4 g/dl (14.0-18.0) L 03/20/22 Hct 38.5 % (40.1-51.0) L 03/20/22 MCV 83.0 fL (80.0-100.0) 03/20/22 MCH 28.9 pg (25.0-34.0) 03/20/22 MCHC 34.8 g/dL (32.0-36.0) 03/20/22 RDW Standard Deviation 40.6 fL (36.4-46.3) 03/20/22 RDW Coefficient of Variation 13.4 % (11.5-14.5) 03/20/22 Plt Count 273 K/uL (130-400) 03/20/22 MPV 9.0 fL (9.4-12.4) L 03/20/22 Neutrophils (%) (Auto) 88.9 % 03/20/22 Lymphocytes (%) (Auto) 5.1 % 03/20/22 Monocytes # (Auto) 0.81 K/uL (0.24-0.82) 03/20/22 Eosinophils # (Auto) 0.02 K/uL (0-0.50) 03/20/22 Immature Granulocyte % (Auto) 1.4 % 03/20/22 Neutrophils # (Auto) 17.35 K/uL (1.4-6.5) H 03/20/22 Lymphocytes # (Auto) 1.00 K/uL (1.2-3.4) L 03/20/22 Monocytes # (Auto) 0.81 K/uL (0.24-0.82) 03/20/22 Eosinophils # (Auto) 0.02 K/uL (0-0.50) 03/20/22 Basophils # (Auto) 0.07 K/uL (0-0.2) 03/20/22 Immature Granulocyte # (Auto) 0.28 K/uL (0.00-0.02) H 03/20 Na 135 mmol/L (136-145) L 03/20/22 K 4.7 mmol/L (3.5-5.1) 03/20/22 Cl 109 mmol/L (98-107) H 03/20/22 CO2 20 mmol/L (21-32) L 03/20/22 Anion Gap 6 (3-11) 03/20/22 BUN 7 mg/dl (6-23) 03/20/22 Creatinine 0.54 mg/dl (0.6-1.4) L 03/20/22 Estimated GFR ( Amer) > 150.0 ml/min 03/20/22 Estimated GFR (Non-Af Amer) 131.3 ml/min 03/20/22 BUN/Creatinine Ratio 13.2 (10-20) 03/20/22 Glu 89 mg/dl (70-99(Fasting)) 03/20/22 Ca 8.4 mg/dl (8.5-10.1) L 03/20/22 Phosphorus Level 2.0 mg/dl (2.5-4.9) L 03/20/22 Total Bilirubin 1.0 mg/dl (0.2-1.0) 03/20/22 Direct Bilirubin 0.2 mg/dl (0-0.2) 03/20/22 AST 39 U/L (13-39) 03/20/22 ALT 39 U/L (7-52) 03/20/22 Alkaline Phosphatase 59 U/L (34-104) 03/20/22 TP 5.9 gm/dl (6.0-8.3) L 03/20/22 Albumin 3.4 gm/dl (3.4-5.0) 03/20/22 Globulin 2.5 gm/dl (2.5-4.0) 03/20/22 Albumin/Globulin Ratio 1.4 (0.9-2) 03/20/22 Mg 1.5 mg/dl (1.7-2.4) L 03/20/22 03:56 Calcium Level 8.4 mg/dl (8.5-10.1) L 03/20/22 03:56 Prothromb Time International Ratio 1.2 (0.9-1.1) H 03/20/22 03 :56 Arterial Blood pH 7.40 (7.35-7.45) 03/20/22 09:37 Arterial Blood Partial Pressure CO2 34 mmHg (35-46) L 03/20/22 09:37 Arterial Blood Partial Pressure O2 84 mmHg (80-95) 03/20/22 09: 37 Arterial Blood HCO3 21 mmol/L (19-24) 03/20/22 09:37 Arterial Blood Base Excess -3.0 mEq/L (-9-1.8) 03/20/22 09:37 Arterial Blood Oxygen Saturation 98.3 % (90-95) H 03/20/22 09:3 7 Blood Gas Oxygen Given 15L 03/20/22 09:37 Jc Test Pos (Pos) 03/20/22 09:37 Microbiology 03/19/22 08:30 Aerobic Blood Culture - Preliminary Blood No growth in Aerobic bottle after 24 hours. Anaerobic Blood Culture - Preliminary No growth in Anaerobic bottle after 24 hours. 03/19/22 08:30 Aerobic Blood Culture - Preliminary Blood No growth in Aerobic bottle after 24 hours. Anaerobic Blood Culture - Preliminary No growth in Anaerobic bottle after 24 hours. 03/19/22 08:05 Gram Stain - Final Sputum,Vent Suction Sputum Culture - Preliminary Staphylococcus species Diagnostic Findings (Past 24 Hours) Chest X-Ray 03/19/22 15:33 SINGLE VIEW CHEST CLINICAL HISTORY: Intubation. FINDINGS: An AP, portable, supine chest radiograph is compared to study dated 03/19/2022. Endotracheal and enteric tubes are unchanged in position. The cardiomediastinal silhouette is unremarkable. There is airspace consolidation at the left lung base. Minimal opacities are also seen at the right lung base. No large pleural effusion or pneumothorax is seen. There is chronic posttraumatic deformity of the right clavicle. IMPRESSION: 1. Stable lines and tubes. 2. There is airspace consolidation at the left lung base which is new from today's earlier examination. Correlate clinically for evidence of pneumonia/aspiration pneumonitis. 3. Minimal opacities are also suggested at the right lung base. ACT 112: Negative or not required by law. Electronically signed by: Emerson Tirado M.D. 03/19/2022 3:[address] 03/20/22 06:00 CT chest diagnostic wo con CT DOSE: 386.81 mGy.cm HISTORY: Aspiration pneumonitis. Follow-up. TECHNIQUE: Multiaxial CT images of the chest were performed without contrast. A dose lowering technique was utilized adhering to the principles of ALARA. COMPARISON: Abdomen and pelvis CT 03/17/2022. FINDINGS: There is a moderate anterior wedge-shaped compression deformity at T12 which is likely old. This remains unchanged. Nondisplaced fracture within the anterior cortex of the mid sternum. There is an old nonunited right clavicle fracture. The visualized liver, spleen, and adrenal glands are unremarkable. A nasogastric tube terminates in the body of the stomach. The endotracheal tube terminates approximately 5 cm from the virgie. A catheter tip is located within the proximal IVC near the confluence of the right atrium. There is respiratory motion artifact. Trace pericardial effusion is noted. The heart is normal in size. There is a normal caliber thoracic aorta. The esophagus is also normal in caliber. No mediastinal hematoma or lymphadenopathy. No pneumothorax. Mild biapical paraseptal emphysema is noted. Dense consolidation noted within the majority of the left lower lobe. Additional scattered tree-in-bud and groundglass densities noted within the lungs posteriorly. This likely represents a pneumonia and could be secondary to aspiration. The distal left lower lobe bronchi are opacified. IMPRESSION: 1. Dense consolidation within the majority of the left lower lobe with additional scattered tree-in-bud and groundglass densities within the lungs posteriorly. This likely represents a pneumonia and favors aspiration. The distal left lower lobe bronchi are opacified. 2. Nondisplaced acute fracture within the anterior cortex of the mid sternum. 3. Support line placement as described above. ACT 112: Negative or not required by law. Electronically signed by: Hugo Lake M.D. 03/20/2022 7:54 AM I & O Totals 24 Hours 03/19/22 03/20/22 03/21/22 06:59 06:59 06:59 Intake Total 2240.052 / 2267.052 3204.950 / 3662.850 565.023 / 565.023 Output Total 2171 / 2251 2360 / 2360 Balance 69.052 / 16.052 844.950 / 1302.850 565.023 / 565.023 Cumulative 08/31/22 04:43 thru 03/20/22 09:51 Intake Total 8730.757 Output Total 7790 Balance 940.757 RT Ventilator Mngmt (Last Documented) Ventilator Ordered Settings Ventilator Support Mode CPAP 03/20/22 08:00 Respiratory Rate 34 03/20/22 08:30 Ventilator Tidal Volume 450 03/19/22 15:47 Setting Minute Ventilation 10 03/20/22 07:30 Ventilator Positive Pressure 5 03/20/22 08:00 Support Setting Positive End Expiratory 5 03/20/22 08:00 Pressure Fraction of Inspired Oxygen 35 03/20/22 08:42 Machine Comment FiO2 titrated to 21%, RN aware 03/18/22 07:34 Ventilator - PT Measurements Respiratory Rate 34 Exhaled Tidal Volume 320 Minute Ventilation 10 Peak Inspiratory Airway 10 Pressure Plateau Pressure 14 Respiratory Cycle Inspiratory: 1:1.4 Expiratory Ratio Inspiratory Phase Time 0.9 End-Tidal CO2 26 Static Lung Compliance 51.00 Dynamic Lung Compliance 64.00 Normal Static Lung Compliance 49.00 Patient Measurements Comment FiO2 decreased back down to 40% after oxygen challenge. Coding Level of Care Code Critical Care 1st 30-74 mins Diagnoses Cardiac arrest I46.9 Acute respiratory failure J96.00 Colitis K52.9 Asphyxiation due to hanging T71.161A Suicide attempt by hanging T71.162A
[2022-03-20 10:55] LABS: Alanine Aminotransferase 36 U/L (7-52); Albumin Globulin Ratio 1.2 (0.9-2); Albumin Level 3.2 gm/dl (3.4-5.0); Alkaline Phosphatase 53 U/L (34-104); Amylase 63 U/L (25-115); Anion Gap 8 (3-11); Aspartate Aminotransferase 34 U/L (13-39); Bilirubin Direct 0.2 mg/dl (0-0.2); Blood Urea Nitrogen 6 mg/dl (6-23); Calcium 8.4 mg/dl (8.5-10.1); Carbon Dioxide 21 mmol/L (21-32); Chloride 110 mmol/L (98-107); Creatinine Clr Calc Pharmacy 222.5 ml/min; Est GFR (African American) > 150.0 ml/min; Globulin 2.7 gm/dl (2.5-4.0); Glucose Fasting 96 mg/dl (70-99); Lipase 33 U/L (11-82); Potassium 3.7 mmol/L (3.5-5.1); Sodium 139 mmol/L (136-145); Total Protein 5.9 gm/dl (6.0-8.3)
[2022-03-20] MEDS: AMPICILLIN/SULBACTAM SOD 3,000 MG in 0.9 % SODIUM CHLORIDE 100 ML IV SCH ×2 (10:59→17:45)
[2022-03-20] MEDS: PANTOprazole 40 MG in SYRINGE 0 ML IV SCH (11:00)
[2022-03-20] MEDS: MIDAZOLAM HCL 1 MG/ML 2ML VIAL IV PRN ×3 (11:51→18:36)
[2022-03-20] MEDS: fentaNYL citrate 100 MCG/2 ML VIAL IV PRN ×3 (11:59→18:36)
[2022-03-20] MEDS: NOREPINEPHRINE/D5W 4 MG/250 ML PLCT IV SCH (15:07)
[2022-03-20] MEDS ORDERED: MoRPHine SULFATE PCA 30 MG/30 ML IV PRN (15:32)
--- NOTE | 2022-03-20 15:32 | Hospitalist Progress Note ---
Date of Service March 20, 2022 Assessment & Plan (1) Cardiac arrest: Plan: Cardiac arrest/suicide attempt/asphyxiation due to hanging/acute respiratory failure- See ICU notes for clinical details. Patient for terminal extubation. Because he is an organ donor, and [facility] has found that he has possibly 3 potential matches for organs, extubation was delayed to be able to fulfill the patient's organ donation wishes. In discussion with [facility] mil farley will be brought to the operating room at 8 PM and extubated there. She requested that we have comfort medicines availableto be clear not to hasten , but rather to provide comfort if the patient needs after terminal extubation. She will also require medical staff in attendance to pronounce the patient when he passes, so that organs may be harvested in a timely fashion. By protocol, she noted they would give 30,000 units of heparin IVorder has been placed -In discussion with nursing, patient's sedation needs have been quite high, and therefore I suspect for comfort he will likely need fairly significant dosingby protocol everything must be in the operating room when he is brought there. To that end, given his degree of sedation requirements now, I ordered a morphine [employer] at 2 mg an hour with an extra bolus every 10 minutes if needed, and instructions that nursing may titrate the drip upwards if the patient's comfort requires it. Further I have ordered a 1 mg Ativan x1 dose as needed refractory agitation or restlessness. -By [facility] protocol, patient apparently is a viable organ donor if he passes within 90 minutes or less of terminal extubationand because of that medical staff must be present in the OR to promptly pronounce him for that 90- minute duration. (2) Suicide attempt by hanging: (3) Acute respiratory failure: (4) Asphyxiation due to hanging: (5) Colitis: (6) Hyperglycemia: Plan: Placed on Accu-Cheks for hyperglycemic ICU protocol Admission and Anticipated Discharge Date Admission Date: March 17, 2022 Subjective Patient is intubated and sedated Physical Exam Physical Exam: intubated, does not appear in pain Results & Data Results & Data ([facility]) Vital Signs (Past 12 Hours) Vital Signs Temp Pulse Resp BP Pulse Ox O2 Del Method FiO2 03/20/22 15:21 35 03/20/22 15:21 99 H 03/20/22 11:30 99.9 F H 105 H 35 H 96 03/20/22 11:30 113/68 03/20/22 11:00 99.5 F 102 H 36 H 98 03/20/22 11:00 106/65 03/20/22 10:30 99.0 F 101 H 36 H 99 03/20/22 10:30 107/67 03/20/22 10:00 98.8 F 101 H 33 H 99 03/20/22 10:00 111/66 03/20/22 09:30 99.0 F 104 H 37 H 98 03/20/22 09:30 101/62 03/20/22 09:00 98.8 F 101 H 33 H 98 03/20/22 09:00 110/65 03/20/22 11:36 99 H 03/20/22 11:36 35 03/20/22 11:30 104 H 36 H 98 30 03/20/22 08:42 CPAP, Mechanical Vent 35 03/20/22 08:30 98.8 F 99 H 34 H 98 03/20/22 08:30 102/69 03/20/22 08:00 98.8 F 102 H 38 H 97 03/20/22 08:00 105/68 03/20/22 07:30 98.8 F 102 H 35 H 99 03/20/22 07:30 106/59 L 03/20/22 07:00 99.0 F 103 H 30 H 97 03/20/22 07:00 103/64 03/20/22 06:45 99.0 F 101 H 29 H 95 03/20/22 08:00 35 03/20/22 08:00 102 H 03/20/22 07:30 102 H 33 H 98 35 03/20/22 06:30 98 H 20 111/72 95 03/20/22 06:25 101 H 19 105/71 97 03/20/22 06:22 104 H 23 97 03/20/22 05:45 101 H 34 H 98 03/20/22 05:30 102 H 34 H 103/59 L 97 03/20/22 05:15 100 H 34 H 97 03/20/22 05:00 94 H 19 95/65 L 98 03/20/22 04:45 100 H 32 H 98 03/20/22 04:00 40 03/20/22 04:30 100 H 29 H 99 03/20/22 04:30 105/62 03/20/22 04:15 92 H 23 100 03/20/22 04:01 95 H 18 100 03/20/22 04:00 96 H 22 89/63 L 100 03/20/22 03:45 103 H 23 100 03/20/22 04:26 40 03/20/22 03:45 100 PG Care Time/CCT Total # of Minutes Spent Total Time Spent with Patient: Total time spent is greater than 50% in coordination of care (as documented) at patient's floor/unit and/or counseling patient: Coding Level of Care Code 49838 Subseq Hosp Care Lvl 3 Diagnoses Cardiac arrest I46.9 Suicide attempt by hanging T71.162A Acute respiratory failure J96.00 Asphyxiation due to hanging T71.161A Colitis K52.9 Hyperglycemia R73.9
[2022-03-20] MEDS ORDERED: SODIUM CHLORIDE 0.9% 1000ML 1,000 ML IV SCH (15:45)
[2022-03-20] MEDS ORDERED: MoRPHine SULF/NSS 250 MG/250 ML BTL IV SCH (16:00)
[2022-03-20] MEDS ORDERED: HEPARIN BOLUS IV ONE (16:00)
[2022-03-20 16:11] LABS: iSTAT Arterial Blood Gas HCO3 20 meg/L (19-24); iSTAT Arterial Blood Gas pCO2 35 mmHg (35-46); iSTAT Arterial Blood Gas pH 7.36 (7.35-7.45); iSTAT Arterial Blood Gas pO2 69 mmHg (80-95); iSTAT Carbon Dioxide 21 mmol/L (24-31); iSTAT FiO2 30 %; iSTAT Site Art Line
[2022-03-20 16:33] LABS: Alanine Aminotransferase 33 U/L (7-52); Albumin Globulin Ratio 1.3 (0.9-2); Albumin Level 3.2 gm/dl (3.4-5.0); Alkaline Phosphatase 57 U/L (34-104); Anion Gap 9 (3-11); Aspartate Aminotransferase 28 U/L (13-39); Blood Urea Nitrogen 7 mg/dl (6-23); Calcium 8.3 mg/dl (8.5-10.1); Carbon Dioxide 20 mmol/L (21-32); Chloride 108 mmol/L (98-107); Creatinine Clr Calc Pharmacy 213.4 ml/min; Est GFR (African American) > 150.0 ml/min; Est GFR (Non-African American) 136.7 ml/min; Globulin 2.5 gm/dl (2.5-4.0); Glucose Fasting 85 mg/dl (70-99); Potassium 3.6 mmol/L (3.5-5.1); Sodium 137 mmol/L (136-145); Total Protein 5.7 gm/dl (6.0-8.3)
[2022-03-20] MEDS ORDERED: LORazepam 0.5 MG in SYRINGE 0.25 ML IV PRN (20:00)
[2022-03-20] MEDS: MoRPHine SULFATE 2 MG/ML CARP IV PRN ×3 (21:25→21:45)
[2022-03-20] MEDS ORDERED: LORazepam 1 MG in SYRINGE 0.5 ML IV STA (21:59)
--- NOTE | 2022-03-20 22:10 | Death Pronouncement Note ---
Date of Service March 20, 2022 Pronouncement Note Admission Date Admission Date: March 17, 2022 Date and Time of Date of : 03/20/22 Time of : 22:07 Contributing Factors (1) Asphyxiation due to hanging: (2) Cardiac arrest: (3) Suicide attempt by hanging: (4) Acute respiratory failure: (5) Colitis: (6) Hyperglycemia: Additional Data Confirmation of : no pulse, no respirations, no heart sounds and pupils fixed and dilated Attending/PCP notified?: No Attending physician: Da Espino, DO Was code activated?: No Autopsy requested?: No insurance examiner notified?: Yes Organ bank notified?: Yes Advance directives: No Coding Level of Care Code D/C DAY MANAGEMENT <30 MINS Diagnoses Asphyxiation due to hanging T71.161A Cardiac arrest I46.9 Suicide attempt by hanging T71.162A Acute respiratory failure J96.00 Colitis K52.9 Hyperglycemia R73.9
--- NOTE | 2022-03-21 07:17 | Discharge Summary ---
Date of Service March 20, 2022 Admission HPI Per Admitting Provider The patient is a 41-year-old male resident at [facility], brought to the emergency department as an out of hospital cardiac arrest, after having been found with a shoelace tied around his neck and hanging from a bunk bed. He reportedly did not initially have a pulse, and CPR was started x2 minutes, with return of spontaneous circulation and spontaneous breathing. Upon arrival to the facility, EMS inserted an OPA, and patient had breathing assisted by [id number]. Patient was on his response upon arrival to the emergency department, patient is presently intubated and on propofol infusion. Emergency room work-up included the following: CT head without contrast negative. CT cervical spine without contrast negative. Chest x-ray with no acute findings, with the ET tube in position. CT scan abdomen pelvis suggestive of colitis in the ascending, transverse and descending colon. Significant abnormal laboratories: WBC 16.73, platelets 413, INR 1.2, bicarb 17, glucose 274, total bili 1.8, AST 50. ABG with pH 7.24, PCO2 56, PO2 156, O2 sat 99% Urine drug screen negative COVID-19 testing negative Principal Diagnosis suicide by hanging Discharge Exam see earle vitor PAC pronouncement/ note; see my note from earlier in the day 03/20 Discharge Data Allergies Allergy/AdvReac Type Severity Reaction Status Date / Time No Known Allergies Allergy Verified 03/17/22 08:20 Consultations 03/17/22 06:24 ED Decision to Admit Stat 03/17/22 06:59 Consult Producer Assistant Routine Procedures Performed Operation Date: 03/20/22 21:00 Actual Procedures p Organ Recovery(Not Applicable) - Surgeon Molino Ordered Studies 03/17/22 05:05 CT abd pelvis IV con only Urgent CT cervical spine wo con Urgent CT head/brain wo con Urgent 03/17/22 06:27 US point of care ultrasound Stat 03/20/22 06:00 CT chest diagnostic wo con Urgent Hospital Course (1) Cardiac arrest: Cardiac arrest/suicide attempt/asphyxiation due to hanging/acute respiratory failure- terminal extubation, gift of life. please see earlier progress notes and ICU notes for more details (2) Suicide attempt by hanging: (3) Acute respiratory failure: (4) Asphyxiation due to hanging: (5) Colitis: (6) Hyperglycemia: Placed on Accu-Cheks for hyperglycemic ICU protocol Total Time Total Time Spent Total Time Spent (In Minutes): <30 Discharge Plan Discharge Items Patient Disposition: Other Date/Time: 03/20/22 22:07 Coding Level of Care Code None Diagnoses Cardiac arrest I46.9 Suicide attempt by hanging T71.162A Acute respiratory failure J96.00 Asphyxiation due to hanging T71.161A Colitis K52.9 Hyperglycemia R73.9
== END 2022-03-20 22:10 | disposition expired | DRG 922 ==
LOC: EDBD → ED 04:53 → SUATTDRO 06:28 → 1E 06:28